=== PATIENT | female | born 1970 | race Caucasian/White ===

== ENCOUNTER → 2017-10-23 12:28 | Outpatient (CLI) | payer OTHER, SELFPAY ==
--- NOTE | 2017-10-23 12:36 | HPBI_ITS ---
MAMMOGRAPHY - BILATERAL SCREENING REASON FOR EXAM: Female, 47 years old. Routine annual screening examination. PERTINENT HISTORY: Non-contributory. TECHNIQUE: Digital bilateral breast bonnie (3D mammographic acquisition) in the CC and MLO projections. 2-D mediolateral oblique (MLO) and craniocaudad (CC) views of both breasts were obtained. CAD: Full Field Digital Mammography with Computer Added Detection was performed. COMPARISON: None. Baseline examination. FINDINGS: Breast Composition: There are scattered areas of fibroglandular density. There are no dominant masses or suspicious calcifications. A sebaceous cyst is seen in the deep medial aspect of the left breast. No other significant abnormalities are identified. HPBI/SCREENING MAMM (CAD), BILAT IMPRESSION: Negative screening mammogram. Yearly followup mammogram recommended. (A) ASSESSMENT CATEGORY: BIRADS Category 2: Benign. A letter regarding these results will be sent to the patient by the facility within 30 days. Approximately 10% of breast cancers are not detected by mammography. A normal mammogram should not delay biopsy of a clinically suspicious abnormality. [id number] Electronically Signed: Gonzalez Sherman MD at 14:15 EST Tel [phone], Service support ,
== END ==
DX: Z12.31 Encounter for screening mammogram for malignant neoplasm of breast (principal)
CPT/HCPCS: 77063; 77067

== ENCOUNTER → 2018-04-07 12:05 | Outpatient (CLI) | payer MEDICAID, SELFPAY | DX: J44.1 Chronic obstructive pulmonary disease with (acute) exacerbation (principal) | CPT/HCPCS: 71260; Q9967 ==

== ENCOUNTER 2018-04-20 07:29 | Emergency (ER) | payer MEDICAID, SELFPAY ==
[2018-04-20 07:29] VITALS: BP 162/92; PULSE 98; RESP 18; TEMP 36.9; O2SAT 99; BMI 44.1
[2018-04-20 08:33] LABS: Absolute Lymphocyte Count 1.61 X10^3/ul (0.83-4.51); Absolute Neutrophil Count 3.8 X10^3/uL (2.0-7.7); Basophil# 0.01 X10^3/uL; Basophil% 0.2 % (0-1); Eosinophil# 0.09 X10^3/uL; Eosinophils% 1.5 % (0-5); Hematocrit 44.8 % (37-47); Hemoglobin 14.5 g/dl (12.0-15.0); Lymphocyte # 1.61 X10^3/ul (4.0); Lymphocyte % 26.6 % (19-41); Mean Corp Hgb Conc 32.4 g/gl (32-36); Mean Corpuscular Hgb 29.1 pg (27.0-32.0); Monocyte# 0.57 X10^3/uL; Monocyte% 9.4 % (0-10); Neutrophil # 3.78 X10^3/uL (2.7-7.7); Neutrophil % 62.3 % (47-70); POSITIVE COUNT NO; POSITIVE DIFFERENTIAL NO; POSITIVE MORPHOLOGY NO; Platelet Count 166 K/mm3 (150-450); RBC Distribution Width CV 13.2 % (11.6-14.6); RBC Distribution Width SD 42.6 fl (35.1-43.9); Red Blood Count 4.98 M/mm3 (4.2-5.4); White Blood Count 6.1 K/mm3 (4.4-11.0)
[2018-04-20 09:50] LABS: ALB/GLOB Ratio 1.1 RATIO (0.9-2.4); AST(SGOT) 15 U/L (15-37); Alanine Aminotransfer ALT/SGPT 24 U/L (13-56); Albumin, Serum 3.8 g/dL (3.2-5.0); Alkaline Phosphatase 61 U/L (45-117); Anion Gap 8 (5-15); BUN 10 mg/dL (7-18); BUN/Creat Ratio 10.7 RATIO (10-20); Calcium,Total 8.6 mg/dL (8.5-10.1); Chloride 106 mmol/L (98-107); Creatinine, Serum 0.94 mg/dL (0.55-1.02); EST Glomerular Filtration Rate 68 mL/min (>60); Est Glom Filt Rate - Afr Amer 82 mL/min (>60); Estimated Creatinine Clearance 71.95 ml/min; Globulin 3.5 g/dL (2.2-4.2); Glucose 90 mg/dL (74-106); Potassium 3.9 mmol/L (3.5-5.1); Protein, Total 7.3 g/dL (6.4-8.2); Sodium Level 142 mmol/L (136-145)
--- NOTE | 2018-04-20 10:00 | ED.VISSUMM ---
- ER Visit Summary Date of Service: 04/20/18 Chief Complaint: Anterior lower chest/upper abdominal pain History of Present Illness: The patient is a 48 F who recently had a CAT scan of her chest that revealed a nodular thyroid suspect secondary to goiter. Outpatient ultrasound was recommended. Uncertain reason she was sent to the emergency department. Patient states this pain is been present intermittently for 3 months. There are no alleviating, exacerbating or precipitating factors. She denies fever, chills or night sweats. She denies weight loss. She reports 40 pound weight gain since she was placed on prednisone for COPD. She is a smoker 1-1/2 packs per day. She denies any food intolerance. She denies hematemesis, melena hematochezia. There is no history of trauma. Physical Examination: Patient appears in no distress. Vital signs were noted and unremarkable. BMI is 44.2. Head is atraumatic normocephalic. Pupils are equal round reactive. Extraocular muscles are intact. TMs are pearly white with landmarks noted. Nares patent with no drainage. Posterior pharynx without erythema or exudate. Uvula is midline. There is no dysphonia or dysphasia. Trachea is midline. There is no stridor with auscultation of the neck. Heart is regular without murmur, gallop or rub. S1 and S2 are normal. Lungs are clear to auscultation with good movement of air bilaterally. Abdomen is soft with a negative Castillo sign. Bowel sounds are present slightly diminished. There is no tympany or percussion. There is no dermatologic lesions to suggest shingles. There is no CVA tenderness. Neuro exam is nonfocal Test Results: CBC and CMP are normal. Emergency Department Course and Treatment: Because of location of pain CBC and CMP were obtained. Patient's CAT scan did reveal organs in the right upper quadrant and there was no N O'Harjit liver or gallbladder. With no intolerance to greasy or fried foods negative Castillo sign if workup i.e. laboratory results are negative we will have her follow-up with practitioner at [facility] to further evaluate her pain since this is been present for 3 months. Treatment Plan: Bentyl for abdominal discomfort and follow-up with PCP to schedule outpatient ultrasound of her thyroid Disposition: Discharged to home Impression: 1. Recurrent intermittent right sided lower chest/right upper quadrant abdominal pain of unknown etiology 2. Nodular thyroid subsequent visit 3. History of COPD This note was generated with [employer] dictation software. It may contain incorrect words, spelling, and punctuation that were not noted in review of the chart prior to signing ED Disposition - Plan for ED Patient: Disposition: Home or Assisted Living Chief Complaint: Abd Pain Instructions: ED Abdominal Pain Unkn Cause, ED Acute Pain [facility] Prescriptions: Dicyclomine HCl [Bentyl] 20 mg PO ACHS #20 cap Referrals: [facility] [Primary Care Provider] - 1-2 Weeks Additional Instructions: You need to follow-up with your [facility] care provider at [facility] to arrange for outpatient ultrasound of your thyroid. The cause of your pain is unknown.
[2018-04-20 10:32] VITALS: BP 134/89; PULSE 75; RESP 16; O2SAT 98
== END 2018-04-20 10:33 | disposition home or self-care (01) ==
PROVIDERS: Emergency Provider Emergency Medicine
DX: R10.11 Right upper quadrant pain (principal); R07.9 Chest pain, unspecified; E04.1 Nontoxic single thyroid nodule; J44.9 Chronic obstructive pulmonary disease, unspecified; E66.9 Obesity, unspecified; F17.210 Nicotine dependence, cigarettes, uncomplicated; Z68.41 Body mass index [BMI] 40.0-44.9, adult
CPT/HCPCS: 80053; 85025; 99283; A4216

== ENCOUNTER → 2018-06-04 14:30 | Outpatient (CLI) | payer MEDICAID, SELFPAY ==
--- NOTE | 2018-06-04 14:30 | ASPS_PTH ---
PATIENT: CRYSTAL FLORES [facility] U[facility][id number] AGE/SX: 55/F ROOM: RE06/04/[address]: Dr. Chele Delvalle MD : 1970 BED: DIS: SPEC #: [id number] RECD: 06/04/18 15:59 STATUS: MIKE BELL #: [id number] [place]: 06/04/18 14:[address]: Chele Delvalle DEPT: CYTOLOGY RECD BY: Desmond Fulton ENTERED: 06/05/18 11:14 SP TYPE: ASPIRATION OTHR DR: Freeland [facility] Tissues: A - Thyroid gland, NOS B - Thyroid gland, NOS Procedures: Pap Stain (control) Special Stain Group II Cytology Other HEADER OPERATION: Ultrasound-guided fine needle aspiration bilateral thyroid PRE-OP DIAGNOSIS: Multinodular goiter E04.1 TISSUE SUBMITTED: A - Fine needle aspiration right thyroid 12 slides, B - Fine needle aspiration left thyroid 12 slides DIAGNOSIS CYTOLOGY A. Right thyroid nodule, FNA (smears): Consistent with benign colloid nodule. See cytology study and comment. B. Left thyroid nodule, FNA (smears): Consistent with benign colloid nodule. See cytology study and comment. SJ:rg 06/05/18 COMMENT Correlation with clinical, radiologic findings and appropriate follow up are necessary. CYTOLOGY STUDY Slides are reviewed. A. The specimen is adequate for evaluation. The specimen consists of abundant colloid and benign follicular cells. B. The specimen is adequate for evaluation. The specimen consists of abundant colloid and benign follicular cells and H?rthle cells. CYTOLOGY GROSS A - Received are 12 smears labeled with the patient's name and designated per the requisition as right thyroid. Submitted for staining. B - Received are 12 smears labeled with the patient's name and designated per the requisition as left thyroid. Submitted for staining. 06/05/18 TC:5 CPT: 81466 x2
== END ==
PROVIDERS: Referring Provider Surgery; Visit Provider Surgery
DX: E04.2 Nontoxic multinodular goiter (principal)
CPT/HCPCS: 88161; 88313

== ENCOUNTER → 2018-06-30 10:56 | Outpatient (CLI) | payer MEDICAID, SELFPAY ==
--- NOTE | 2018-06-30 12:56 | PFT ---
INTRODUCTION: The patient is a 48-year-old female that presents for pulmonary function testing secondary to a diagnosis of COPD. Respiratory therapy reports good patient effort. Bronchodilators were used during testing. INTERPRETATION: Forced expiration spirometry demonstrates no evidence of a large airways obstructive ventilatory defect. There was no significant response to aerosolized bronchodilators, based upon strict ATS criteria. Spirograms are of good quality and plateau normally. Body plethysmography was performed and reveals lung volumes to be within normal limits. Diffusing capacity by single breath CO is within normal limits at 78% of predicted. IMPRESSION: Grossly normal pulmonary function testing.
== END ==
DX: J44.1 Chronic obstructive pulmonary disease with (acute) exacerbation (principal)
CPT/HCPCS: 94060; 94726; 94729

== ENCOUNTER → 2018-08-04 07:20 | Outpatient (CLI) | payer MEDICAID, SELFPAY ==
[2018-08-04 06:32] VITALS: BMI 45.7
[2018-08-07 06:08] LABS: Alternaria tenuis <0.10 kU/L (Class 0); Ash, White <0.10 kU/L (Class 0); Aspergillus fumigatus <0.10 kU/L (Class 0); Bermuda Grass <0.10 kU/L (Class 0); Birch <0.10 kU/L (Class 0); Black Walnut <0.10 kU/L (Class 0); Cat Hair / Dander,Stand <0.10 kU/L (Class 0); Cedar, Mountain <0.10 kU/L (Class 0); Cladosporium herbarum <0.10 kU/L (Class 0); Cockroach, American <0.10 kU/L (Class 0); Cottonwood <0.10 kU/L (Class 0); D farinae Mite <0.10 kU/L (Class 0); D pteronyssinus <0.10 kU/L (Class 0); Dog Epithelia <0.10 kU/L (Class 0); Elm, American White <0.10 kU/L (Class 0); Immunoglobulin E 7 IU/mL (0-100); Maple/Box Elder <0.10 kU/L (Class 0); Mulberry, White <0.10 kU/L (Class 0); Oak, White <0.10 kU/L (Class 0); Pecan <0.10 kU/L (Class 0); Penicillium Notatum <0.10 kU/L (Class 0); Pigweed, Rough <0.10 kU/L (Class 0); Ragweed, Short/Common <0.10 kU/L (Class 0); Russian Thistle <0.10 kU/L (Class 0); Sheep Sorrel <0.10 kU/L (Class 0); Sycamore, American <0.10 kU/L (Class 0); Timothy Grass <0.10 kU/L (Class 0)
[2018-08-07 12:34] LABS: Immunoglobulin E 6 IU/mL (0-100); Mouse Urine <0.10 kU/L (Class 0)
--- OUTSIDE RECORDS SUMMARY | 2018-09-20 05:35 | XMS RPT_ITS ---
:1970 Author Organization OHIP Support Name Relationship Address Phone KANU HERRERA Unavailable [address] + [place] [address] UE Unavailable Unavailable Unavailable KANU HERRERA Unavailable [address] + [place] [address] UE Unavailable Unavailable Unavailable KANU HERRERA Unavailable . + [place] [address] UE Unavailable Unavailable Unavailable KANU HERRERA Unavailable Unavailable + [place] [address] UE Unavailable Unavailable Unavailable KANU HERRERA Unavailable Unavailable + [place] [address] UE Unavailable Unavailable Unavailable KANU HERRERA Unavailable . + [place] [address] UE Unavailable Unavailable Unavailable KANU HERRERA Unavailable Unavailable + [place] [address] UE Unavailable Unavailable Unavailable UE Unavailable Unavailable Unavailable UE Unavailable Unavailable Unavailable UE Unavailable Unavailable Unavailable DONALDO ADAMS Unavailable [address] + [place] [address] UE Unavailable Unavailable Unavailable DONALDO ADAMS Unavailable [address] + [place] [address] UE Unavailable Unavailable Unavailable DONALDO ADAMS Unavailable [address] + [place] [address] UE Unavailable Unavailable Unavailable DONALDO ADAMS Unavailable [address] + [place] [address] UE Unavailable Unavailable Unavailable Care Team Providers Name Role Phone Kai Blanchard D.O. Attending Unavailable [facility] Referring Unavailable Kai Blanchard D.O. Attending Unavailable Kai Blanchard D.O. Referring Unavailable [facility] Unavailable Swihart KELLI, Tara Consulting Unavailable Jody Allred Attending Unavailable [facility] Referring Unavailable Kai Blanchard D.O. Attending Unavailable Kai Blanchard D.O. Referring Unavailable Chele Delvalle Attending Unavailable [facility] Referring Unavailable [facility] Attending Unavailable [facility] Referring Unavailable [facility] Unavailable [facility] GLASS SETTER, Tara Consulting Unavailable Adelia, Chele Attending Unavailable AdeliaChele espitia Referring Unavailable [facility] Primary [facility] Un[facility] Attending Unavailable [facility] Referring Unavailable [facility] Unavailable Swihart GLASS SETTER, Tara Consulting Unavailable [facility] Attending Unavailable [facility] Referring Unavailable [facility] Unavailable Swihart GLASS SETTER, Tara Consulting Unavailable Chele Delvalle Attending Unavailable [facility] Referring Unavailable Chele Delvalle Attending Unavailable [facility] Referring Unavailable [facility] Primary [facility] Unavailable Reinaldo Grajeda Attending Unavailable [facility] Attending Unavailable Swihart GLASS SETTER, Tara Referring Unavailable [facility] Unavailable SWIHART STEEP TENDER, TARA L Attending Unavailable [facility] STEEP TENDER, TARA L Primary Care Unavailable CY BASSETT Attending Unavailable SWIHART STEEP TENDER, TARA L Primary Care Unavailable SWIHART STEEP TENDER, TARA L Attending Unavailable SWIHART STEEP TENDER, TARA L Primary Care Unavailable SWIHART STEEP TENDER, TARA L Attending Unavailable SWIHART STEEP TENDER, TARA L Primary Care Unavailable PROBLEMS PROBLEMS DATE TYPE CONDITION / CODE ATTENDING STATUS SOURCE 09/01/2018 Unknown G47.33 - Brigida, Active [place] Obstructive sleep [facility] Community apnea (adult) Hospital (pediatric) / Repository G47.33(ICD-10) 08/04/2018 Unknown J44.9 - Chronic Kai Blanchard, Active [place] obstructive D.O. Community pulmonary disease, Hospital unspecified / Repository J44.9(ICD-10) 07/13/2018 Unknown J44.1 - Chronic Kai Blanchard, Active [place] obstructive D.O. 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 [place] [address] OFFICE VISIT Date of Service: 09/01/18 MR#: [id number] Acct: [id number] Name: CRYSTAL FLORES Rep #: [id number] : 1970 Provider: Jody Allred Age/Sex: 48/F Location: [facility] Status: Signed Assessment AND Plan 1. RAMO (obstructive sleep apnea) G47.33 Plan Suspected. Several symptoms consistent with obstructive sleep apnea. Lengthy discussion about the pathophysiology of obstructive sleep apnea and its effects on overall health such as hypertension, hyperglycemia, anxiety and depression. The patient is agreeable to testing and treatment if determined appropriate. Plan for a polysomnogram, discussed the possibility of starting AutoPap versus a titration study if the polysomnogram is positive. Consider AutoPap. Plan to follow-up with Dr. Blanchard in 3 months. Initial goal is to wear the device at least 4 hours nightly, ultimately she would benefit from 7 hours nightly. Orders Orders: 2. Moderate persistent asthma with acute exacerbation J45.41 Plan Deteriorated. Likely secondary to acute sinusitis. Treating with Augmentin and a prednisone burst. Continue maintenance medications. No additional testing at this time. Follow-up with Dr. Blanchard in 3 months. Contact the office with any new or worsening symptoms in the meantime. 3. Anxiety F41.9 Plan Complicates exam, plan, care and prognosis. Plan Detail Other Medications New: Follow Up 3 Months ([facility]) HPI 1 MO FU COPD: Chief Complaint: Cough HPI Comments Details: This patient presents the office in follow-up on her asthma. She is ambulatory and currently in room air. She has not been seen in the ED or urgent care for respiratory illnesses since her last office visit. She has not required any antibiotics or prednisone for any breathing problems. She has been compliant with Symbicort 2 puffs twice daily. She rinses her mouth out after each use. She denies any medication side effects such as sore throat or thrush. She uses her albuterol nebulizer when she has bronchitis. She has not needed it recently. She uses her rescue inhaler a couple times per week when she experiences shortness of breath on exertion. She denies any shortness of breath with rest or conversation. Currently she has a moist but nonproductive cough, denies any sputum production or hemoptysis. Over the past 24 hours she has developed nasal congestion, sinus pressure, sneezing, clear nasal drainage and chest congestion. She denies any fever or chills. She denies any body aches. She reports that her symptoms are very similar to the ones that her significant other has experienced recently. She has not tried any [id number] medications for her symptoms. She continues to smoke 1 pack of cigarettes daily. She is currently snoring, does not feel rested upon arising in the morning. She often has dry mouth. She is not currently napping or nodding off while watching TV but is experiencing frequent headaches. She also reports 3 episodes or more of nocturia nightly. STOP-BANG Assessment: 1. Do you snore? Y 2. Are you frequently tired during the day? Y 3. Have you been observed gasping or choking while asleep? N 4. Do you have high blood pressure? Y 5. BMI - greater than 35kg/m2? Y 6. Age - over 50 years old? N 7. Neck Circumference - greater than 37 cm for females or 40 cm for males? Y 8. Gender - male? N Total STOP-BANG score = 5 which indicates HIGH risk for obstructive sleep apnea (yes to 3 or more questions = high risk of sleep apnea). Laboratory Tests A. tenuis Allergen IgE <0.10 A.fumigatus Allerg IgE <0.10 Intake Vital Signs09/01/18 Height 5 ft 7 in 09/01/18 Weight: 297 lb Intake Visit Reasons: 1 MO FU COPD Accompanied by: Self Allergies ibuprofen [From Motrin] Allergy (Unknown, Verified 09/01/18 08:31) Unknown vinyl ether Adverse Reaction (Verified 09/01/18 08:31) Rash Medications Albuterol Aerosols [Ventolin Aerosols] 2.5 mg INHALATION Q6HWA.RT 04/20/18 [History Confirmed 09/01/18] Dicyclomine HCl [Bentyl] 20 mg PO ACHS #20 cap 04/20/18 [Rx Confirmed 09/01/18] albuterol sulfate HFA 90 mcg/actuation aerosol inhaler 2 puff INHALATION Q6H PRN 08/04/18 [History Confirmed 09/01/18] budesonide-formoterol HFA 160 mcg-4.5 mcg/actuation aerosol inhaler 2 puff INHALATION Q12H 08/04/18 [History Confirmed 09/01/18] amoxicillin 875 mg-potassium clavulanate 125 mg tablet 1 tab PO BID #20 tab 09/01/18 [Rx Confirmed 09/01/18] doxycycline hyclate 50 mg capsule 50 mg PO DAILY cap 09/01/18 [History Confirmed 09/01/18] prednisone 20 mg tablet 60 mg PO QDAY #15 tab 09/01/18 [Rx Confirmed 09/01/18] sertraline 50 mg tablet 50 mg PO DAILY 09/01/18 [History Confirmed 09/01/18] PFSH Medical History Hemorrhoids (Acute) Constipation (Acute) Asthma (Acute) COPD (chronic obstructive pulmonary disease) (Acute) Shortness of breath (Acute) Anxiety (Acute) Depression (Acute) Arthritis (Acute) Fatigue (Acute) Surgical History History of surgical removal of skin lesion (Acute) Hx of fracture of femur (Acute) History of partial hysterectomy (Acute) History of surgical removal of pilonidal cyst (Acute) Hx of section (Acute) Family History Mother Diabetes Father Diabetes Bleeding disorder hx of blood clots Brother Diabetes Social History Smoking Status: Current every day smoker alcohol intake: never substance use type: does not use caffeine: Yes what type of physical activity do you participate in: none frequency: does not exercise seatbelt use: always Review of Systems Const CONSTITUTIONAL: Positive fatigue and weight gain; negative anorexia, body ache, chills, daytime sleepiness, fever(s), night sweats, oral thrush, stops breathing during sleep, weight loss, sleeping in chair, weight loss, frequent colds, seasonal allergies, other, headache(s) or orthopnea EETM Ear Nose Throat Mouth: Positive hearing normal, nasal congestion, nasal discharge and post nasal drip; negative hard of hearing, hoarseness, dry mouth in morning, change in vision, itchy eyes, eye pain, swallowing Difficulty, ear pain, nose bleed, headache(s), mouth pain, sinus pain, sinus pressure, sore throat or other Cardio Cardiovascular: Negative chest pain, chest pain at rest, chest pain with activity, irregular heart rhythm, edema, shortness of breath when lying down, palpitations, murmur or other Resp Respiratory: Positive as per HPI, shortness of breath shortness of breath: Positive with activity and chest tightness; negative pain with cough, wheezing, chest congestion, cough, pain on inspiration, inhalers, increase use of rescue inhalers, snoring, apnea or other Gastro Gastrointestional: Negative bloody stools, change in appetite, difficulty swallowing, reflux, hematemesis, melena stool, loose stool, constipation or other Genitourinary: Negative blood in urine, nocturia, pain with urination or other Musc Musculoskeletal: Negative body pain, back pain, neck pain or other Skin/Breast Skin/Breast: Negative dry skin, itching, unusual bruising, breast lump or other Neuro Neurological: Negative restless legs, confusion, weakness or other Psych Psychocological: Negative abnormal sleep pattern, anxiety, thoughts of hurting self/others, hopelessness or other Lymph Lymphatic: Negative easy bleeding, easy bruising, swollen lymph nodes or other Exam Const Constitutional: Positive conversant, cooperative, in no acute respiratory distress, well developed, well nourished, good hygiene, smells of smoke and obese Head Head: Positive normocephalic and atraumatic; negative cyanosis of lips/distal nose Eyes Eye: Positive clear conjunctiva; negative nystagmus or scleral abnormality Ears Ear: Positive hearing normal and external ears normal; negative hard of hearing Nose Nose: Positive no nasal discharge; negative epistaxis or external nose normal ([place] nose) Mouth Mouth: Positive post nasal drip, oral mucosae normal, no lesions, poor dentition and crowded posterior oropharynx; negative malodorous breath Mallampati Score: III: Mallampati Score Neck Neck: Positive normal visual inspection, full ROM, trachea midline, thick neck and female neck greater than 37 cm (15 in); negative lymphadenopathy, JVD or tender Chest Wall Chest: Positive normal inspection of the chest and symmetric chest movement; negative increased A/P diameter Resp lung sounds: Positive diminished, wheezes, normal expiratory time and normal respiratory effort; negative rhonchi, rales or dullness to percussion Cardio Cardiac: Positive regular rate, regular rhythm, S1 normal and S2 normal; negative murmur GI GI: Positive normal to inspection and obese; negative distended Genitourinary: Positive deferred Musc Musculoskeletal: Positive steady gait and ROM normal; negative kyphosis or scoliosis Skin Pulmonary Skin Exam: Positive erythema Pulses Pulse: Yes pulses normal x4 extremities Extremities Extremities: Yes capillary refill normal, No cyanosis, No clubbing, Yes edema Location: lower extremity location: Bilateral pitting +1 Neuro Neurologic: Yes conversant, Yes no focal neuro deficits, Yes normal concentration, Yes understands questions, Yes cooperative, Yes normal cognition, Yes normal coordination, No tremor Lymph Lymphatic: No lymphadenopathy Psych Appearance: Positive grossly normal and eye contact Mental Status: Positive mental status grossly normal Mood: Positive anxious mood Affect: Positive anxious affect Coding Level of Care Code Off vis,est,level 4 Diagnoses RAMO (obstructive sleep apnea) G47.33 Moderate persistent asthma with acute exacerbation J45.41 Asthma severity: moderate Asthma persistence: persistent Asthma complication type: with acute exacerbation Anxiety F41.9 09/01/18 0937 <Electronically signed by Jody TAPIA> Date Jody TAPIA Cosigner Signature: Date (if applicable) CC: [facility] PULMONARY VISIT REPORT Observed: 08/04/2018 Status: F Source: [place] 7:25 AM [facility] REPOSITORY [facility] [place] [address] [place] [address] OFFICE VISIT Date of Service: 08/04/18 MR#: [id number] Acct: [id number] Name: CRYSTAL FLORES Rep #: [id number] : 1970 Provider: Kai Blanchard D.O. Age/Sex: 48/F Location: [facility] Status: Signed Assessment AND Plan 1. SOB (shortness of breath) R06.02 Plan I do suspect that the patient's shortness of breath is likely multifactorial in etiology. Her recent pulmonary function testing completed in June revealed subtle findings of small airways obstruction. However, per strict guidelines, she did not have evidence of COPD. Nevertheless, if the patient does continue to smoke it is highly possible that she will go on to develop an obstructive airway disease. The patient's current PFTs may be more suggestive of underlying bronchospastic airway disease, like asthma. Patient continues to report pleurisy like symptoms, despite the fact that the symptoms do not respond to the use of albuterol. In fact, her spasms appear to be musculoskeletal in nature. She is currently doing well on Symbicort and as needed albuterol. This will be continued at this time. The patient may eventually require a prior authorization for this medication. At this time, I am going to check a RAST panel and IgE level to evaluate for the presence of allergies. I do also suspect that the patient's obesity and anxiety are also contributing to her perception of dyspnea. I do feel that it would be beneficial for the patient's depression and anxiety to be more aggressively treated. 2. Obesity E66.9 Plan Weight loss through dietary modification and a graded exercise regimen is strongly encouraged. 3. Nicotine dependence, cigarettes, uncomplicated F17.210 Plan I personally spent 5 minutes discussing the deleterious effects of ongoing tobacco utilization with the patient, including modalities which could be utilized to achieve a smoke-free lifestyle. The patient does not seem overtly ready to quit smoking yet. Plan Detail Other Orders Orders: Other Medications New: Follow Up 1 Month ([facility]) HPI HPI Comments Details: The patient is a 48-year-old female who presents to the clinic today in referral for evaluation of COPD. The patient is currently being followed by the [facility]. She claims to have been diagnosed with COPD in December 2017. She also reports a history of childhood asthma. Her main concerns are for that of shortness of breath, which occurs both at rest and with exertion. She also reports the presence of chest tightness, chronic nonproductive cough and occasional wheezing. She reports that she has been experiencing pleurisy like symptoms, which include muscle spasms located inferior to her right breast. The patient is currently prescribed both Symbicort and as needed albuterol. While she does report symptom improvement with her shortness of breath with the use of her rescue inhaler, albuterol does not relieve any of her muscle spasm symptoms. The patient was trialed on Dulera previously, but the patient stated that that medication did absolutely nothing for her. Her insurance, he does not currently cover her Symbicort and she is therefore being given samples of the medication. The patient did undergo pulmonary function testing in June 2018 which per strict guidelines did not demonstrate evidence of COPD. Patient did have subtle findings of potential small airways obstruction. Nevertheless, it is highly possible that given the patient's continued tobacco utilization, she will likely go on to develop an obstructive ventilatory impairment. She does report that weather, including extremely cold and hot temperatures, negatively impact her breathing quality. She is a current everyday smoker of approximately 1 pack of cigarettes daily. She previously smoked upwards of 2 packs of cigarettes and has been doing so for approximately 30 years. She is not currently employed. She reports an approximate 40 pound weight gain over the last year. She has become more inactive. She also reports baseline issues with depression and anxiety. She is unaware of any allergies that she is afflicted with. She does currently keep 3 dogs as pets in her home environment. She reports having been on multiple antibiotics recently for a breast abscess. She denies current fevers, chills or night sweats. Intake Vital Signs08/04/18 Height 5 ft 7 in 08/04/18 Weight: 292 lb Intake Visit Reasons: COPD Accompanied by: Self Allergies ibuprofen [From Motrin] Allergy (Unknown, Verified 08/04/18 06:32) Unknown vinyl ether Adverse Reaction (Verified 08/04/18 06:32) Rash Medications Albuterol Aerosols [Ventolin Aerosols] 2.5 mg INHALATION Q6HWA.RT 04/20/18 [History Confirmed 08/04/18] Dicyclomine HCl [Bentyl] 20 mg PO ACHS #20 cap 04/20/18 [Rx Confirmed 08/04/18] doxycycline monohydrate 150 mg capsule 150 mg PO BID cap 05/29/18 [History Confirmed 08/04/18] albuterol sulfate HFA 90 mcg/actuation aerosol inhaler 2 puff INHALATION Q6H PRN 08/04/18 [History Confirmed 08/04/18] budesonide-formoterol HFA 160 mcg-4.5 mcg/actuation aerosol inhaler 2 puff INHALATION Q12H 08/04/18 [History Confirmed 08/04/18] PFSH Medical History Hemorrhoids (Acute) Constipation (Acute) Asthma (Acute) COPD (chronic obstructive pulmonary disease) (Acute) Shortness of breath (Acute) Anxiety (Acute) Depression (Acute) Arthritis (Acute) Fatigue (Acute) Surgical History History of surgical removal of skin lesion (Acute) Hx of fracture of femur (Acute) History of partial hysterectomy (Acute) History of surgical removal of pilonidal cyst (Acute) Hx of section (Acute) Family History Mother Diabetes Father Diabetes Bleeding disorder hx of blood clots Brother Diabetes Social History Smoking Status: Current every day smoker alcohol intake: never substance use type: does not use caffeine: Yes what type of physical activity do you participate in: none frequency: does not exercise seatbelt use: always Review of Systems Const CONSTITUTIONAL: Positive fatigue; negative anorexia, body ache, chills, daytime sleepiness, fever(s), night sweats, oral thrush, stops breathing during sleep, weight loss, sleeping in chair, weight loss, weight gain, frequent colds, seasonal allergies, other, headache(s) or orthopnea EETM Ear Nose Throat Mouth: Positive hearing normal and hoarseness; negative hard of hearing, dry mouth in morning, change in vision, itchy eyes, eye pain, swallowing Difficulty, ear pain, nose bleed, headache(s), mouth pain, nasal congestion, nasal discharge, post nasal drip, sinus pain, sinus pressure, sore throat or other Cardio Cardiovascular: Positive chest pain and edema; negative chest pain at rest, chest pain with activity, irregular heart rhythm, shortness of breath when lying down, palpitations, murmur or other Resp Respiratory: Positive as per HPI, shortness of breath shortness of breath: Positive with activity and chest tightness; negative pain with cough, wheezing, chest congestion, cough, pain on inspiration, inhalers, increase use of rescue inhalers, snoring, apnea or other Gastro Gastrointestional: Positive other (abd bloating ); negative bloody stools, change in appetite, difficulty swallowing, reflux, hematemesis, melena stool, loose stool or constipation Genitourinary: Negative blood in urine, nocturia, pain with urination or other Musc Musculoskeletal: Positive back pain; negative body pain, neck pain or other Skin/Breast Skin/Breast: Negative dry skin, itching, rash, unusual bruising, breast lump or other Neuro Neurological: Negative restless legs, confusion, weakness or other Psych Psychocological: Positive anxiety and hopelessness; negative abnormal sleep pattern, thoughts of hurting self/others or other Lymph Lymphatic: Negative easy bleeding, easy bruising, swollen lymph nodes or other Exam Const Constitutional: Positive conversant, cooperative, in no acute respiratory distress, well developed and well nourished A bit unkempt in appearance. Obese. Head Head: Positive normocephalic and atraumatic; negative cyanosis of lips/distal nose Eyes Eye: Positive clear conjunctiva; negative nystagmus or scleral abnormality Ears Ear: Positive hearing normal and external ears normal; negative hard of hearing Nose Nose: Positive external nose normal; negative epistaxis Mouth Mouth: Positive oral mucosae normal, posterior oropharynx is adequate and poor dentition; negative no lesions or post nasal drip Mallampati Score: II: Mallampati Score Neck Neck: Positive normal visual inspection, trachea midline and thick neck; negative lymphadenopathy Chest Wall Chest: Positive symmetric chest movement Normal AP diameter. Resp lung sounds: Positive diminished diminished: Positive bialteral and normal expiratory time; negative wheezes, rhonchi or rales Cardio Cardiac: Positive regular rate, regular rhythm, S1 normal and S2 normal; negative rub, gallop or murmur GI GI: Positive normal bowel sounds Soft without distention Genitourinary: Positive deferred Musc Musculoskeletal: Positive steady gait Skin Pulmonary Skin Exam: Positive intact; negative lesion, ulcers, dermal atrophy or rash Pulses Pulse: Yes Pedal pulses present: Extremities Extremities: No clubbing, No cyanosis, No edema Neuro Neurologic: Yes conversant, Yes no focal neuro deficits, Yes cooperative Lymph Lymphatic: No lymphadenopathy Psych Appearance: Positive grossly normal Mental Status: Positive mental status grossly normal Mood: Positive congruent mood Affect: Positive normal affect Pulmonary Procedure Smoking Cessation Education: Yes education provided, 3-10 minutes and needs reinforcement Coding Level of Care Code Off vis,new,level 4 Diagnoses SOB (shortness of breath) R06.02 Obesity E66.9 Nicotine dependence, cigarettes, uncomplicated F17.210 08/04/18 0725 <Electronically signed by Kai Blanchard DO> Date Kai Blanchard DO Cosigner Signature: Date (if applicable) CC: KEATON MAYES [facility] IMMUNOGLOBULIN E Collected: 08/04/2018 Status: F Source: [place] 7:24 AM [facility] REPOSITORY TYPE CODE TESTS RESULT OUT OF RANGE REFERENCE UNITS LAB L3200.1600 0-100 IU/mL Normal IMMUNO E 6 Result Comment: Performed at: [address] [id number] Banking Center Manager: Jarvis Martinez MD, Phone: [phone] Performed By: #### L3200.5495 #### [facility] (refer to report for specific site) refer to report for address and phone number ALLERGEN RESP. AREA 5 Collected: 08/04/2018 Status: F Source: [place] 7:24 AM [facility] REPOSITORY Order Comment: Reason for Exam: Allergies Reason for exam? Allergies TYPE CODE TESTS RESULT OUT OF RANGE REFERENCE UNITS LAB L5500.8000 0-100 IU/mL Normal TOTAL igE 7 LAB L5500.9900 . Normal RAST COMMENT Comment Result Comment: Levels of Specific IgE Class Description of Class ----- < 0.10 0 Negative 0.10 - 0.31 0/I Equivocal/Low 0.32 - 0.55 I Low 0.56 - 1.40 II Moderate 1.41 - 3.90 III High 3.91 - 19.00 IV Very High 19.01 - 100.00 V Very High >100.00 Very High LAB L5510.0040 Class 0 kU/L CAT HAIR/DANDER Normal <0.10 LAB L5510.0070 Class 0 kU/L DOG EPITHELIA Normal <0.10 LAB L5520.0020 Class 0 kU/L D FARINAE MITE Normal <0.10 LAB L5520.0030 Class 0 kU/L D PTERONYSSINUS Normal <0.10 LAB L5540.0020 Class 0 kU/L BERMUDA GRASS Normal <0.10 LAB L5540.0190 Class 0 kU/L RUCHI GRASS Normal <0.10 LAB L5550.0020 Class 0 kU/L ALTERNARIA TEN Normal <0.10 LAB L5550.0040 Class 0 kU/L ASPERGILLUS FUM Normal <0.10 LAB L5550.0140 Class 0 kU/L CLADOSPOR HERB Normal <0.10 LAB L5550.0340 Class 0 kU/L PEN Notatum Normal <0.10 LAB L5555.0380 Class 0 kU/L COCKROACH,AMER Normal <0.10 LAB L5555.0410 Class 0 kU/L Mouse Urine Normal <0.10 Result Comment: Performed at: [address] [id number] Banking Center Manager: Jarvis Martienz MD, Phone: [phone] LAB L5560.0050 Class 0 kU/L RC, Normal WHITE <0.10 LAB L5560.0100 Class 0 kU/L BIRCH Normal <0.10 LAB L5560.0110 Class 0 kU/L CEDAR, Normal MOUNTAIN <0.10 LAB L5560.0140 Class 0 kU/L Normal COTTONWOOD <0.10 LAB L5560.0170 Class 0 kU/L ELM,AMER Normal WHITE <0.10 LAB L5560.0310 Class 0 kU/L Normal MAPLE/BOX ELDER <0.10 LAB L5560.0371 Class 0 kU/L Normal MULBERRY, WHITE <0.10 LAB L5560.0400 Class 0 kU/L OAK, Normal WHITE <0.10 LAB L5560.0440 Class 0 kU/L PECAN Normal <0.10 LAB L5560.0550 Class 0 kU/L Normal SYCAMORE, AMER <0.10 LAB L5560.0570 Class 0 kU/L BLACK Normal WALNUT <0.10 LAB L5580.0210 Class 0 kU/L PIGWEED, Normal ROUGH <0.10 LAB L5580.0260 Class 0 kU/L RAGWEED Normal SH/COM <0.10 LAB L5580.0320 Class 0 kU/L SHEEP Normal SORREL <0.10 LAB L5580.0360 Class 0 kU/L CAMEROONIAN Normal THISTLE <0.10 Performed By: #### L5500.0700 #### [facility] (refer to report for specific site) refer to report for address and phone number PULMONARY FUNCTION Observed: 06/30/2018 Status: F Source: [place] TEST 12:59 PM [facility] REPOSITORY [facility] Pulmonary Services/Neurology [address] [place] [address] MR#: [id number] Acct: [id number] Name: CRYSTAL FLORES Rep #: [id number] : 1970 48 From: Kai Blanchard DO Referring Dr: KEATON MAYES [facility] Status: REG CLI Ordering Dr: Date: Location: [facility] Sex: F C INTRODUCTION: The patient is a 48-year-old female that presents for pulmonary function testing secondary to a diagnosis of COPD. Respiratory therapy reports good patient effort. Bronchodilators were used during testing. INTERPRETATION: Forced expiration spirometry demonstrates no evidence of a large airways obstructive ventilatory defect. There was no significant response to aerosolized bronchodilators, based upon strict ATS criteria. Spirograms are of good quality and plateau normally. Body plethysmography was performed and reveals lung volumes to be within normal limits. Diffusing capacity by single breath CO is within normal limits at 78% of predicted. IMPRESSION: Grossly normal pulmonary function testing. 06/30/18 1259 <Electronically signed by Kai Brown DO> Date Kai Blanchard DO CC: KEATON MAYES [facility] Date Dictated: 06/30/18 1256 Date Transcribed: 06/30/181255 Supervisor Filtration: ORIN Signed SURGERY VISIT REPORT Observed: 06/16/2018 Status: F Source: [place] 8:55 AM [facility] REPOSITORY [facility] [address] [place] [address] OFFICE VISIT Date of Service: 06/11/18 MR#: [id number] Acct: [id number] Name: CRYSTAL FLORES Rep #: [id number] : 1970 Provider: Chele Delvalle MD Age/Sex: 48/F Location: [facility] Status: Signed Intake Intake Visit Reasons: FNA Bilateral Thyroid Nodules 06/04 Computer Systems Auditor Required: No Is patient in pain?: No Allergies ibuprofen [From Motrin] Allergy (Unknown, Verified 06/11/18 13:59) Unknown vinyl ether Adverse Reaction (Verified 06/11/18 13:59) Rash Medications Albuterol Aerosols [Ventolin Aerosols] 2.5 mg INHALATION Q6HWA.RT 04/20/18 [History Confirmed 06/11/18] Dicyclomine HCl [Bentyl] 20 mg PO ACHS #20 cap 04/20/18 [Rx Confirmed 06/11/18] Mometasone/Formoterol [Dulera 100 Mcg/5 Mcg Inhaler] 8.8 gm IH 04/20/18 [History Confirmed 06/11/18] bupropion HCl SR 150 mg tablet,12 hr sustained-release 150 mg PO BID 05/29/18 [History Confirmed 06/11/18] doxycycline monohydrate 150 mg capsule 150 mg PO BID cap 05/29/18 [History Confirmed 06/11/18] Subjective Details: Patient is status post a bilateral fine-needle aspiration of her thyroid gland completed on 06/04/2018. This came back consistent with benign colloid nodules on both sides and both sides were adequate for evaluation. She has not noticed any changes in her voice and she has not been experiencing any pain with swallowing. The largest nodule was on the right side and was 2.9 cm in size per Objective Details: Neck is supple no hard palpable nodules or I did not Assessment AND Plan Problems 1. Multinodular goiter (nontoxic) E04.2 Plan Patient will need to have a repeat ultrasound in 1 year. If the nodules grow by more than 20% or new nodules develop that are larger than a centimeter she will need to have repeat fine-needle aspirations. If the nodule on the right side gets above 4 cm then we will need to consider performing a thyroidectomy on her at that time. Coding Level of Care Code Off vis,est,level 2 Diagnoses Multinodular goiter (nontoxic) E04.2 06/16/18 0855 <Electronically signed by Chele Delvalle MD> Date Chele Delvalle MD [facility] Signature: Date (if applicable) CC: KEATON MAYES [facility] Observed: 06/09/2018 Status: F Source: [facility] 12:00 [facility] REFERENCE REPOSITORY Specimen #: [id number] Submitting Physician: KERI GOLDMAN M.D. FINAL DIAGNOSIS A. Skin, under right breast, excision - Keratin debris, consistent with epidermal inclusion cyst. SDB/LW/thais 06/11/2018 Jose Storey M.D. (Electronic Signature) SPECIMEN SUBMITTED A: SKIN, UNDER RIGHT BREAST, EXCISION CLINICAL DATA LIKELY 2 CONTIGUOUS EIC'S GROSS DESCRIPTION A. Received in formalin are multiple segments of hamilton-white soft tissue aggregating to 4.0 x 0.6 x 0.1 cm. An ellipse of skin is noted measuring 1.4 x 0.2 x 0.1 cm. Skin surface is grossly unremarkable. Specimen does resemble a cyst and is ruptured. Specimen is sectioned. Roving Winder sections are submitted in one cassette. Gross examination performed at [facility], [address] [place] [address] 06/10/2018 12:32:44 AM Date of Report: 06/11/2018 Date of Procedure: 06/09/2018 Date of Receipt: 06/09/2018 Submitted by: KERI GOLDMAN M.D. Location: Diagnostic interpretation performed at [place] [address]. Performed By: #### S #### See report for performing lab information. SURGERY VISIT REPORT Observed: 06/04/2018 Status: F Source: [place] 3:18 PM [facility] REPOSITORY [facility] [address] [place] [address]. [address] [place] [address] OFFICE VISIT Date of Service: 06/04/18 MR#: [id number] Acct: [id number] Name: CRYSTAL FLORES Rep #: [id number] : 1970 Provider: Chele Delvalle MD Age/Sex: 48/F Location: [facility] Status: Signed Intake Intake Visit Reasons: FNA Bilateral Thyroid Nodules Computer Systems Auditor Required: No Is patient in pain?: No Allergies ibuprofen [From Motrin] Allergy (Unknown, Verified 06/04/18 14:28) Unknown vinyl ether Adverse Reaction (Verified 06/04/18 14:28) Rash Medications Albuterol Aerosols [Ventolin Aerosols] 2.5 mg INHALATION Q6HWA.RT 04/20/18 [History Confirmed 06/04/18] Dicyclomine HCl [Bentyl] 20 mg PO ACHS #20 cap 04/20/18 [Rx Confirmed 06/04/18] Mometasone/Formoterol [Dulera 100 Mcg/5 Mcg Inhaler] 8.8 gm IH 04/20/18 [History Confirmed 06/04/18] bupropion HCl SR 150 mg tablet,12 hr sustained-release 150 mg PO BID 05/29/18 [History Confirmed 06/04/18] doxycycline monohydrate 150 mg capsule 150 mg PO BID cap 05/29/18 [History Confirmed 06/04/18] PFSH Medical History Hemorrhoids (Acute) Constipation (Acute) Asthma (Acute) COPD (chronic obstructive pulmonary disease) (Acute) Shortness of breath (Acute) Anxiety (Acute) Depression (Acute) Arthritis (Acute) Fatigue (Acute) Surgical History History of surgical removal of skin lesion (Acute) Hx of fracture of femur (Acute) History of partial hysterectomy (Acute) History of surgical removal of pilonidal cyst (Acute) Hx of section (Acute) Family History Mother Diabetes Father Diabetes Bleeding disorder hx of blood clots Brother Diabetes Social History Smoking Status: Former smoker alcohol intake: never substance use type: does not use caffeine: Yes what type of physical activity do you participate in: none frequency: does not exercise seatbelt use: always HPI HPI HPI: CRYSTAL FLORES, is a 48 F who presents to the office today for Office Procedures Fine Needle Aspiration Provider Documentation Details: Primitive diagnosis: Multinodular goiter Postoperative diagnosis: The same Procedure: Bilateral ultrasound-guided fine-needle aspiration of dominant bilateral thyroid nodules Surgeon: [place] Procedure: Ultrasound of the right thyroid gland revealed the dominant nodule in question. I prepped the skin with alcohol. I injected 1% lidocaine plain. Under ultrasound guidance I took 3 passes with a 22-gauge needle and plated these on glass slides. Sterile dressings were applied. She tolerated this well. I ultrasound the left side dominant nodules identified I prepped the skin with alcohol. I injected 1% lidocaine plain. Under ultrasound guidance I took 3 passes with a 22-gauge needle. I plated these on glass slides. Sterile dressings were applied. The patient tolerated the procedure well. Both of these look like your garden-variety colloid nodule Alert Kimi Alert Billing: Yes FNA 06197 Thyroid (Add modifier 52 for bilateral) Procedure Time Out Time Out Informed consent given: Yes Consent signed: Yes Time out checklist: patient, procedure, site marked/identified, positioning of patient, supplies available, allergies confirmed, team agrees on procedure Time out staff in room: Yes Time out verified: Yes Time out date: 06/04/18 Time out time: 14:28 Assessment AND Plan Problems 1. Multinodular goiter (nontoxic) E04.2 Orders Orders: Coding Level of Care Code Attention Kimi Diagnoses Multinodular goiter (nontoxic) E04.2 Additional Codes FNA - Fine Needle Aspiration: 58609 Thyroid (92761) 06/04/18 1518 <Electronically signed by Chele Delvalle MD> Date Chele Delvalle MD Cosigner Signature: Date (if applicable) CC: ASPIRATION (SLIDES Observed: 06/04/2018 Status: F Source: [place] ONLY) 2:30 PM [facility] REPOSITORY Patient: CRYSTAL FLORES : 1970 (48/F) Acct Num: [id number] Phys: Chele Delvalle MD Unit Num: [id number] Loc: [facility] Specimen: [id number] Received: 06/04/181558 Spec Type: ASPIRATION TISSUES 1 TISSUES: A. Thyroid gland, NOS B. Thyroid gland, NOS COMMENT Correlation with clinical, radiologic findings and appropriate follow up are necessary. CYTOLOGY GROSS A - Received are 12 smears labeled with the patient's name and designated per the requisition as right thyroid. Submitted for staining. B - Received are 12 smears labeled with the patient's name and designated per the requisition as left thyroid. Submitted for staining. / 06/05/18 TC:5 CPT: 08669 x2 CYTOLOGY STUDY Slides are reviewed. A. The specimen is adequate for evaluation. The specimen consists of abundant colloid and benign follicular cells. B. The specimen is adequate for evaluation. The specimen consists of abundant colloid and benign follicular cells and H rthle cells. DIAGNOSIS CYTOLOGY A. Right thyroid nodule, FNA (smears): Consistent with benign colloid nodule. See cytology study and comment. B. Left thyroid nodule, FNA (smears): Consistent with benign colloid nodule. See cytology study and comment. SJ:jefe 06/05/18 HEADER OPERATION: Ultrasound-guided fine needle aspiration bilateral thyroid PRE-OP DIAGNOSIS: Multinodular goiter E04.1 TISSUE SUBMITTED: A - Fine needle aspiration right thyroid 12 slides, B - Fine needle aspiration left thyroid 12 slides Signed David August 06/08/18 <signature on file> Performed By: #### PASPS #### [facility] [address] [place], [address] SURGERY VISIT REPORT Observed: 06/04/2018 Status: F Source: [place] 10:50 AM [facility] REPOSITORY [facility] [address] [place] [address] OFFICE VISIT Date of Service: 05/29/18 MR#: [id number] Acct: [id number] Name: CRYSTAL FLORES Rep #: [id number] : 1970 Provider: Chele Delvalle MD Age/Sex: 48/F Location: [facility] Status: Signed Intake Vital Signs05/29/18 Height 5 ft 7 in 05/29/18 Weight: 288 lb Intake Visit Reasons: Goiter/Will bring Disk from [place] Computer Systems Auditor Required: No Is patient in pain?: No Allergies ibuprofen [From Motrin] Allergy (Unknown, Verified 05/29/18 09:51) Unknown vinyl ether Adverse Reaction (Verified 04/20/18 07:32) Rash Medications Albuterol Aerosols [Ventolin Aerosols] 2.5 mg INHALATION Q6HWA.RT 04/20/18 [History Confirmed 05/29/18] Dicyclomine HCl [Bentyl] 20 mg PO ACHS #20 cap 04/20/18 [Rx] Mometasone/Formoterol [Dulera 100 Mcg/5 Mcg Inhaler] 8.8 gm IH 04/20/18 [History Confirmed 05/29/18] bupropion HCl SR 150 mg tablet,12 hr sustained-release 150 mg PO BID 05/29/18 [History Confirmed 05/29/18] doxycycline monohydrate 150 mg capsule 150 mg PO BID cap 05/29/18 [History Confirmed 05/29/18] [facility] Medical History Hemorrhoids (Acute) Constipation (Acute) Asthma (Acute) COPD (chronic obstructive pulmonary disease) (Acute) Shortness of breath (Acute) Anxiety (Acute) Depression (Acute) Arthritis (Acute) Fatigue (Acute) Surgical History History of surgical removal of skin lesion (Acute) Hx of fracture of femur (Acute) History of partial hysterectomy (Acute) History of surgical removal of pilonidal cyst (Acute) Hx of section (Acute) Family History Mother Diabetes Father Diabetes Bleeding disorder hx of blood clots Brother Diabetes Social History Smoking Status: Former smoker alcohol intake: never substance use type: does not use caffeine: Yes what type of physical activity do you participate in: none frequency: does not exercise seatbelt use: always HPI HPI HPI: CRYSTAL FLORES, is a 48 F who presents to the office today for evaluation of multinodular goiter. Patient had her thyroid ultrasound completed at [facility]. This showed a multinodular goiter numerous nodules on both sides there was a 2.9 cm nodule located in the right lower pole which they recommended a biopsy and a 2.4 cm located in the mid left pole as they recommended a biopsy. She herself has not had any neck pain she is not complaining of any tenderness along her thyroid gland. She has no history of exposure to radiation. ROS General General: Yes weight change and fatigue; no appetite, colon cancer, breast cancer or weakness HEENT HEENT: Yes difficulty swallowing and swollen glands; no eye injury, eye surgery or hoarseness Endo Endocrine: No thyroid disease, diabetes mellitus, thyroid cancer, Hair loss, heat intolerance or cold intolerance Skin Skin: Yes changing moles; no rash Musc Musculoskeletal: Yes back problems and arthritis; no rheumatoid arthritis, gout or joint pain Cardio Cardiovascular: No murmur, pacemaker, heart disease, atrial fibrillation, high blood pressure, heart attack, heart stent, palpitations, shortness of breat with exertion or chest pain Psych Psychiatric: Yes depression and anxiety; no hearing voices Resp Respiratory: Yes shortness of breath, Yes cough, Yes COPD, Yes asthma, No sleep apnea, No emphysema, No wheezing Gastro Gastrointestinal: Yes hemorrhoids, Yes constipation, No abdominal pain, No nausea or vomiting, No diarrhea, No blood in stool, No acid reflux, No ulcers, No gallbladder problem, No black,tarry stools Asa Hematologic: No blood thinners, No blood disorders, No bleeding, No anemia, No blood clots Neuro Neurologic: No system reviewed and no additional complaints, except as docu, No as per HPI, No abnormal walking, No abnormal hearing, No abnormal movements, No abnormal speech, No behavioral changes, No burning sensations, No confusion, No seizure-like activity, No unsteadiness, No dizziness, No localized weakness, No frequent falls, No headache(s), No lack of coordination, No loss of vision, No memory loss, No numbness, No other visual disturbances, No radiating pain, No restless legs, No sensory deficit, No fainting, No tingling, No tremor(s), No weakness, No other Exam Const General: well developed, no acute distress, well hydrated Orientation: oriented to person, oriented to place, oriented to time [facility] Head: normocephalic, atraumatic Ears: external ears normal Mouth: moist mucous membranes Other: Thyroid Exam: There are no hard palpable nodules identified. There is no lymphadenopathy identified. There is no tenderness to palpation of the thyroid Eyes Sclera: sclerae normal Pupils: normal by confrontation Neck Neck: no lymphadenopathy noted Neck mass: No Thyroid: symmetrical, thyroid normal Chest Chest palpation AND inspection: normal inspection of the chest Resp Effort AND Inspection: normal respiratory effort Auscultation: clear to auscultation bilaterally Percussion: percussion normal Cardio Rate: regular rate Rhythm: regular rhythm Heart Sounds: no murmurs GI Palpation: soft, no masses, no hepatosplenomegaly, nontender Rectal Exam: other Other: Rectal exam deferred. Extrem General: no clubbing, cyanosis or edema, normal to inspection Assessment AND Plan Problems 1. Multinodular goiter (nontoxic) E04.2 Plan Plan is to perform a bilateral fine-needle aspiration of the thyroid. We discussed the risks and benefits of the planned procedure. I have informed the patient that complications can occur including failure to complete the procedure. The patient had the opportunity to ask questions concerning the planned procedure. My staff has also explained the procedure to the patient in understandable terms and has given the patient printed material concerning the procedure. The patient freely consents to the procedure. Coding Level of Care Code Off vis,new,level 3 Diagnoses Multinodular goiter (nontoxic) E04.2 06/04/18 1050 <Electronically signed by Chele Delvalle MD> Date Chele Delvalle MD [facility] Signature: Date (if applicable) CC: KEATON MAYES [facility] Observed: 05/26/2018 Status: F Source: [facility] 12:00 AM [facility] REFERENCE REPOSITORY Specimen #: [id number] Submitting Physician: KERI GOLDMAN M.D. FINAL DIAGNOSIS A. Skin, right 3-4 toe web, shave excision - Compound acral nevus, hyperpigmented. AF/LW/rw 05/28/2018 Apolinar De La Garza M.D. PhD (Electronic Signature) SPECIMEN SUBMITTED A: SKIN, RIGHT 3-4 TOE WEB, SHAVE EXCISION CLINICAL DATA NO CLINICAL HISTORY GROSS DESCRIPTION A. Received in formalin is a 0.7 x 0.6 x 0.2 cm shave of skin. On the skin surface is a 0.2 cm, hamilton-brown flat area. The specimen is bisected. Totally submitted in formalin in one cassette. Gross examination performed at [facility], [address] [place] [address] 05/27/2018 1:46:44 PM Patient ID #: Date of Report: 05/28/2018 Date of Procedure: 05/26/2018 Date of Receipt: 05/27/2018 Submitted by: KERI GOLDMAN M.D. Location: Diagnostic interpretation performed at [place] [address]. Performed By: #### S #### See report for performing lab information. US ABDOMEN LIMITED Observed: 04/30/2018 Status: F Source: [employer] 10:00 AM [facility] REPOSITORY ORIGINAL US ABDOMEN LIMITED: Ultrasound of the RIGHT upper quadrant CLINICAL STATEMENT: RUQ PAIN COMPARISON: None FINDINGS: The liver is enlarged measuring 18.4 cm a critical coronal dimension with diffusely increased in echogenicity in comparison to the adjacent kidney with decreased visualization of periportal echoes, sugg esting hepatic steatosis. No focal lesions are seen. There is no intra or extrahepatic bile duct dilatation. The common duct is 8 mm at the emilie hepatis. The gallbladder is normally distended without calculus, wall thickening or tenderness. The visualized pancreas is normal in size and echogenicity. No ascites is seen in the Quiroga's pouch. The right k idney shows no pelvocaliectasis. IMPRESSION: Hepatic steatosis. Interpreted By: Viviana Alvarado MD Preliminary Report By: Viviana Alvarado MD Electronically Signed By: Viviana Alvarado MD Dictated Date: 04/30/2018 4:54:42 PM Prelim Date: 04/30/2018 4:54:42 PM Sign Date: 04/30/2018 4:55:45 PM US THYROID Observed: 04/30/2018 Status: F Source: [employer] 9:00 AM [facility] REPOSITORY ORIGINAL US THYROID CLINICAL STATEMENT: NON TOXIC GOITER. COMPARISON: None FINDINGS: Size right thyroid lobe: 6.3 x 2.4 x 3.1 cm Size left thyroid lobe: 6.2 x 2.4 x 2.8 cm Size isthmus: 1.0 cm Estimated total number of nodules greater than or equal to 1 cm: 11. The largest 4 will be described in further detail below. Nodule 1: Size: 2.0 x 2.0 x 2.3 cm Location: Right Lower Composition: mixed cystic and solid: 1 point Echogenicity: hypoechoic: 2 points Shape: wider than tall: 0 points Margins: smooth: 0 points Echogenic foci: none: 0 points ACR Total Points: 3; ACR TI-RADS risk category: TR3 - mildly suspicious nodule. Nodule 2: Size: 2.9 x 2.5 x 3.2 cm Location: Right Lower Composition: solid or almost completely solid: 2 points Echogenicity: hypoechoic: 2 points Shape: wider than tall: 0 points Margins: smooth: 0 points Echogenic foci: none: 0 points ACR Total Points: 4; ACR TI-RADS risk category: TR4 - moderately suspicious nodule. Nodule 3: Size: 2.4 x 1.7 x 1.5 cm Location: Left Mid Composition: solid or almost completely solid: 2 points Echogenicity: hypoechoic: 2 points Shape: wider than tall: 0 points Margins: smooth: 0 points Echogenic foci: none: 0 points ACR Total Points: 4; ACR TI-RADS risk category: TR4 - moderately suspicious nodule. Nodule 4: Size: 2.2 x 1.4 x 2.1 cm Location: Right Lower Composition: mixed cystic and solid: 1 point Echogenicity: hypoechoic: 2 points Shape: wider than tall: 0 points Margins: smooth: 0 points Echogenic foci: none: 0 points ACR Total Points: 3; ACR TI-RADS risk category: TR3 - mildly suspicious nodule. IMPRESSION: 1. Nodule 1: ACR TI-RADS 2017 Category 3. Recommend: Follow- up ultrasound in 1 year. 2. Nodule 2: ACR TI-RADS 2017 Category 4. Recommend: Ultrasound- guided fine needle aspiration 3. Nodule 3: ACR TI-RADS 2017 Category 4. Recommend: Ultrasound- guided fine needle aspiration 4. Nodule 4: ACR TI-RADS 2017 Category 3. Recommend: Follow- up ultrasound in 1 year. ACR TI-RADS 2017 Recommendations: TR1: No FNA or follow up TR2: No FNA or follow up TR3: FNA if >/= 2.5 cm, follow up if 1.5 - 2.4 cm in 1, 3, and 5 years TR4: FNA if >/= 1.5 cm, follow up if 1.0 - 1.4 cm in 1, 2, 3, and 5 years TR5: FNA if >/= 1.0 cm, follow up if 0.5 - 0.9 cm every year for 5 years *ACR TI-RADS recommends that no more than two nodules with the highest ACR TI-RADS total point should be biopsied and no more than four nodules should be followed. Interpreted By: Viviana Alvarado MD Preliminary Report By: Viviana Alvarado MD Electronically Signed By: Viviana Alvarado MD Dictated Date: 04/30/2018 4:39:36 PM Prelim Date: 04/30/2018 4:39:36 PM Sign Date: 04/30/2018 4:46:56 PM EMERGENCY DEPARTMENT Observed: 04/20/2018 Status: F Source: [place] SUMMARY 10:07 AM [facility] Medical Records Department [address] [place] [address] Emergency Department Summary 04/20/18 1000 MR#: [id number] Acct: [id number] Name: CRYSTAL FLORES Rep #: [id number] : 1970 48 From: Reinaldo Grajeda MD PCP: KEATON MAYES [facility] Status: REG ER - ER Visit Summary Date of Service: 04/20/18 Chief Complaint: Anterior lower chest/upper abdominal pain History of Present Illness: The patient is a 48 F who recently had a CAT scan of her chest that revealed a nodular thyroid suspect secondary to goiter. Outpatient ultrasound was recommended. Uncertain reason she was sent to the emergency department. Patient states this pain is been present intermittently for 3 months. There are no alleviating, exacerbating or precipitating factors. She denies fever, chills or night sweats. She denies weight loss. She reports 40 pound weight gain since she was placed on prednisone for COPD. She is a smoker 1-1/2 packs per day. She denies any food intolerance. She denies hematemesis, melena hematochezia. There is no history of trauma. Physical Examination: Patient appears in no distress. Vital signs were noted and unremarkable. BMI is 44.2. Head is atraumatic normocephalic. Pupils are equal round reactive. Extraocular muscles are intact. TMs are pearly white with landmarks noted. Nares patent with no drainage. Posterior pharynx without erythema or exudate. Uvula is midline. There is no dysphonia or dysphasia. Trachea is midline. There is no stridor with auscultation of the neck. Heart is regular without murmur, gallop or rub. S1 and S2 are normal. Lungs are clear to auscultation with good movement of air bilaterally. Abdomen is soft with a negative Castillo sign. Bowel sounds are present slightly diminished. There is no tympany or percussion. There is no dermatologic lesions to suggest shingles. There is no CVA tenderness. Neuro exam is nonfocal Test Results: CBC and CMP are normal. Emergency Department Course and Treatment: Because of location of pain CBC and CMP were obtained. Patient's CAT scan did reveal organs in the right upper quadrant and there was no N O'Harjit liver or gallbladder. With no intolerance to greasy or fried foods negative Castillo sign if workup i.e. laboratory results are negative we will have her follow-up with practitioner at [facility] to further evaluate her pain since this is been present for 3 months. Treatment Plan: Bentyl for abdominal discomfort and follow- up with PCP to schedule outpatient ultrasound of her thyroid Disposition: Discharged to home Impression: 1. Recurrent intermittent right sided lower chest/right upper quadrant abdominal pain of unknown etiology 2. Nodular thyroid subsequent visit 3. History of COPD This note was generated with M2TECH dictation software. It may contain incorrect words, spelling, and punctuation that were not noted in review of the chart prior to signing ED Disposition - Plan for ED Patient: Disposition: Home or Assisted Living Chief Complaint: Abd Pain Instructions: ED Abdominal Pain Unkn Cause, ED Acute Pain UKO Prescriptions: Dicyclomine HCl [Bentyl] 20 mg PO ACHS #20 cap Referrals: Keaton Salinas [Primary Care Provider] - 1-2 Weeks Additional Instructions: You need to follow-up with your health care provider at [facility] to arrange for outpatient ultrasound of your thyroid. The cause of your pain is unknown. What to do if you have Problems For any increased pain, shortness of breath, bleeding, nausea or vomiting, chest pain, or any unexpected problems, contact your Primary Care Provider. Call [facility] ([phone]) or report to the closest Emergency Room. Call 911 if necessary. 04/20/18 1007 <Electronically signed by Reinaldo Grajeda MD> Date Reinaldo Grajeda MD Cosigner Signature (If Indicated): Date CC: KEATON MAYES [facility] CBC W/DIFF, AUTOMATED Collected: 04/20/2018 Status: F Source: [place] 8:25 AM [facility] REPOSITORY TYPE CODE TESTS RESULT OUT OF RANGE REFERENCE UNITS LAB L100.1000 4.4-11.0 K/mm3 Normal WBC 6.1 LAB L100.1200 4.2-5.4 M/mm3 Normal RBC 4.98 LAB L100.1300 12.0-15.0 g/dl Normal HGB 14.5 LAB L100.1400 37-47 % Normal HCT 44.8 LAB L100.1500 81-99 fL Normal MCV 90.0 LAB L100.1600 27.0-32.0 pg Normal MCH 29.1 LAB L100.1700 32-36 g/gl Normal MCHC 32.4 LAB L100.1810 11.6-14.6 % Normal RDW CV 13.2 LAB L100.1820 35.1-43.9 fl Normal RDW SD 42.6 LAB L100.1900 150-450 K/mm3 Normal PLT 166 LAB L100.2000 6.2-12.0 fl Normal MPV 12.0 LAB L100.2100 47-70 % Normal NEUT% 62.3 LAB L100.2200 19-41 % Normal LY% 26.6 LAB L100.2300 0-10 % Normal MONO% 9.4 LAB L100.2400 0-5 % Normal EO% 1.5 LAB L100.2500 0-1 % Normal BASO% 0.2 LAB L100.2550 0.0-0.9 % Normal IM GRAN % 0.000 Result Comment: IG% - Immature Granulocytes (promyelocytes, myelocytes and metamyelocytes) > 1% indicates that a LEFT SHIFT is Present. LAB L100.2620 2.0-7.7 X10 3/uL Normal Absolute Neut 3.8 LAB L100.2720 0.83-4.51 X10 3/ul Normal Absolute Lymph 1.61 Performed By: #### L100.0100 #### [facility] [address] [place], [address] COMPREHENSIVE METABOLIC Collected: 04/20/2018 Status: F Source: [facility] 8:25 AM [facility] REPOSITORY TYPE CODE TESTS RESULT OUT OF RANGE REFERENCE UNITS LAB L501.0100 74-106 mg/dL Normal GLU 90 Result Comment: Please note revised GLUCOSE reference range effective 2017. LAB L501.1000 7-18 mg/dL Normal BUN 10 LAB L501.1100 0.55-1.02 mg/dL Normal CREAT,SERUM 0.94 Result Comment: The validity of the calculated GFR AND GFRAA in patients over 70 years has not been determined. Clinical correlation is essential. LAB L501.1110 >60 mL/min Normal EST GFR 68 Result Comment: Non- GFR Calc LAB L501.1115 >60 mL/min Normal EST GFR - AA 82 Result Comment: GFR Calc LAB L501.1255 ml/min Normal Estimated CRCL 71.95 LAB L501.1300 10-20 RATIO Normal BUN/CRE 10.7 LAB L501.1500 6.4-8. g/dL Normal 2 T PROT 7.3 LAB L501.1800 3.2-5. g/dL Normal 0 ALB 3.8 LAB L501.1950 2.2-4. g/dL Normal 2 GLOB 3.5 LAB L501.2000 0.9-2. RATIO Normal 4 A/G 1.1 LAB L501.2200 8.5-10 mg/dL Normal .1 CA 8.6 LAB L501.4100 15-37 U/L Normal AST 15 LAB L501.4305 45-117 U/L Normal ALK P 61 LAB L501.4405 13-56 U/L Normal ALT 24 LAB L501.4600 0.20-1 mg/dL Normal .00 T BILI 0.30 LAB L501.5300 136-14 mmol/L Normal 5 NA 142 LAB L501.5600 3.5-5. mmol/L Normal 1 K 3.9 LAB L501.5900 98-107 mmol/L Normal CL 106 LAB L501.6100 21.0-3 mmol/L Normal 2.0 CO2 28.0 LAB L501.6200 5-15 Normal GAP 8 Performed By: #### L500.4050 #### [facility] [address] [place], [address] CHEST WITH CONTRAST Observed: 04/07/2018 Status: F Source: [place] 12:08 PM [facility] REPOSITORY [facility] Imaging Services [address] [place] [address] Chest WITH Contrast MR#: [id number] Acct: [id number] Name: CRYSTAL FLORES Rep #: [id number] : 1970 F 48 From: Michoacano Kearney MD PCP: KEATON MARROQUIN Status: REG CLI Study: Chest WITH Contrast Date of Exam: 04/07/18 Exam# [id number] Ordering Dr: Keaton Salinas STUDY: CT CHEST WITH CONTRAST REASON FOR EXAM: Female, 48 years old. Fever and cough RADIATION DOSAGE (If Supplied By Facility): CTDIvol = ( 18.38 ) mGy, DLP = ( 748.43 ) mGycm TECHNIQUE: Transaxial imaging was performed following intravenous administration of 100CC ml of Isovue 250 contrast material. Individualized dose optimization techniques were used for this CT. COMPARISON: None. FINDINGS: There is significant enlargement of the entire thyroid with low-density nodules. Findings are suggestive of goiter but a dedicated thyroid ultrasound is recommended since there are no previous studies available for comparison. The lungs are normal. There is no demonstrated pleural abnormality. Normal heart and pericardium. There are scattered subcentimeter axillary and mediastinal lymph nodes. Normal hilar regions. Normal enhanced pulmonary arteries. Normal aorta arch and descending thoracic aorta. Normal osseous structures. There is no demonstrated abnormality of the visualized upper abdomen. CT/Chest WITH Contrast IMPRESSION: No acute pulmonary process. Global thyroid enlargement with multiple low-density nodules. Findings suggest goiter but dedicated thyroid ultrasound is recommended since there are no previous studies available for comparison. Electronically Signed: Umang Kearney MD at 16:42 EDT , Service support , CC: KEATON MAYES [facility] Supervisor Filtration: Signed XR CHEST 2 VIEWS Observed: 03/10/2018 Status: F Source: [place] Site Tour 9:08 PM [facility] REPOSITORY ORIGINAL XR CHEST 2 VIEWS CLINICAL STATEMENT: cough COMPARISON: Chest radiograph 02/04/2018 FINDINGS: The cardiomediastinal contours are normal. There is no consolidation, vascular congestion, pleural effusion, or pneumothorax. Osseous structures demonstrate no acute abnormalities. IMPRESSION: No acute radiographic findings. I have personally reviewed the images of this examination and agree with the resident's findings and interpretation. Interpreted By: Dayron Blas MD Preliminary Report By: Francia Price MD Electronically Signed By: Dayron Blas MD Dictated Date: 03/10/2018 9:13:28 PM Prelim Date: 03/10/2018 9:13:59 PM Sign Date: 03/10/2018 9:32:24 PM XR CHEST 2 VIEWS Observed: 02/04/2018 Status: F Source: [place] Site [place] 9:17 AM [facility] REPOSITORY ORIGINAL XR CHEST 2 VIEWS CLINICAL STATEMENT: cough. COMPARISON: None FINDINGS: The heart is not enlarged. The interstitial markings are coarsened diffusely. There is no focal consolidation. No pleural abnormality is seen. IMPRESSION: Diffuse coarsening of interstitial markings, significance uncertain. This may represent chronic change or an atypical infection. Clinical correlation and follow-up suggested. Interpreted By: Pushpa Sinha MD Preliminary Report By: Pushpa Sinha MD Electronically Signed By: Pushpa Sinha MD Dictated Date: 02/04/2018 12:07:24 PM Prelim Date: 02/04/2018 12:07:24 PM Sign Date: 02/04/2018 12:08:33 PM SCREENING MAMM (CAD), Observed: 10/23/2017 Status: F Source: [place] 12:36 PM [facility] REPOSITORY [facility] Imaging Services [address] [place] [address] SCREENING MAMM (CAD), BILAT MR#: [id number] Acct: [id number] Name: CRYSTAL FLORES Rep #: [id number] : 1970 F 47 From: Gonzalez Sherman MD PCP: KEATON MAYES [facility] Status: REG CLI Study: SCREENING MAMM (CAD), BILAT Date of Exam: 10/23/17 Exam# [id number] Ordering Dr: Tara Mortensen [employer]MENT RENTAL MANAGER-Klever MAMMOGRAPHY - BILATERAL SCREENING REASON FOR EXAM: Female, 47 years old. Routine annual screening examination. PERTINENT HISTORY: Non-contributory. TECHNIQUE: Digital bilateral breast bonnie (3D mammographic acquisition) in the CC and MLO projections. 2-D mediolateral oblique (MLO) and craniocaudad (CC) views of both breasts were obtained. CAD: Full Field Digital Mammography with Computer Added Detection was performed. COMPARISON: None. Baseline examination. FINDINGS: Breast Composition: There are scattered areas of fibroglandular density. There are no dominant masses or suspicious calcifications. A sebaceous cyst is seen in the deep medial aspect of the left breast. No other significant abnormalities are identified. HPBI/SCREENING MAMM (CAD), BILAT IMPRESSION: Negative screening mammogram. Yearly followup mammogram recommended. (A) ASSESSMENT CATEGORY: BIRADS Category 2: Benign. A letter regarding these results will be sent to the patient by the facility within 30 days. Approximately 10% of breast cancers are not detected by mammography. A normal mammogram should not delay biopsy of a clinically suspicious abnormality. [id number] Electronically Signed: Gonzalez Sherman MD at 14:15 EST Tel [phone], Service support , CC: Tara PEREIRA; KEATON MAYES [facility] Supervisor Filtration: Signed ALLERGIES ALLERGIES DATE TYPE / CODE NAME / CODE REACTION SEVERITY SOURCE 09/01/2018 Drug vinyl Rash Unknown [facility] Allergy/4160 ether/[id number] [place] 6919402(SNOMED 393(RXNORM) Repository CT) 09/01/2018 Drug ibuprofen/F00 Unknown Unknown [facility] Allergy/4160 9984134(RXR [facility] 81022(SNOMED M) Repository CT) ENCOUNTERS ENCOUNTERS ADMIT/DISCHARGE ACCOUNT NUMBER ADMITTING ENCOUNTER LOCATION SOURCE CLASS 09/01/2018/09/01/19 [id number] Ambulatory BMSBuilding: [place] 19 BMS[facility] Repository 08/04/[id number] [facility] ding:LAB Repository 08/04/2018/08/04/20 [id number] Ambulatory BMSBuilding: [place] 18 BMS.[facility] Repository 06/30/2018 [id number] Ambulatory BMSBuilding: [place] Repository 06/30/[id number] [facility] ding:PSN Repository 06/11/2018/06/11/20 [id number] Ambulatory BMSBuilding: [place] 18 BMS.[facility] Repository 06/04/[id number] [facility] ding:LABSPEC Repository 06/04/2018/06/04/20 [id number] Ambulatory BMSBuilding: [place] 18 BMS.[facility] Repository 05/29/2018/05/29/20 [id number] Ambulatory BMSBuilding: [place] 18 BMS.[facility] Repository 05/26/2018 [id number] Ambulatory BBuilding:[facility] Repository 04/30/2018/04/30/20 [id number] Ambulatory [address] ding:[facility] Repository 04/20/2018/04/20/20 [id number] Emergency [address] ding:ED Repository 04/07/[id number] [facility] ding:CT Repository 03/10/2018/03/10/20 [id number] Emergency BBuilding:ER [address] Repository 03/10/[id number] [facility] ding:CT Repository 02/04/2018/02/05/20 [id number] Ambulatory [address] ding:[facility] Repository 10/23/[id number] [facility] ding:BI Repository PAYERS PAYERS ENCOUNTER GUARANTOR PAYER SUBSCRIBER SOURCE 09/01/2018 CRYSTAL Carlson Primary CRYSTAL J [place] [id number] Insurance:CARESOURCEPo BOOTHDOB: [facility] lic Number: [id number] [id number] Repository 358[address]Xaq: 330) Date:2018-08-04 [phone] (JI) 1489ATTN: [place] [address]FS: 09/01/2018 Secondary NOT GIVENUNK [place] Insurance:SELF PAY [facility] Number: Effective Repository Date:2018-08-28 08/04/2018 CRYSTAL Carlson Primary CRYSTAL J [place] [id number] Insurance:CARESOURCEPo BOOTHDOB: [facility] Number: [id number] [place], [place] [id number] Repository 244[address]Jxv: 330) Date:2018-08-04 [phone] (CW) 2751ATTN: [place] [address]BZ: 08/04/2018 Secondary NOT GIVENUNK [place] Insurance:SELF PAY [facility] Number: Effective Repository Date:2018-08-04 08/04/2018 CRYSTAL Carlson Primary CRYSTAL J [place] [id number] Insurance:CARESOURCEPo BOOTHDOB: [facility] licy Number: [id number] City, [place] [id number] Repository [address]Ttk: (330) Date:2018-07-31P [phone] (HP) 8730ATTN: [place] [address]WZ: 08/04/2018 Secondary NOT GIVENUNK [place] Insurance:SELF PAY [facility] Number: Effective Repository Date:2018-08-03 06/30/2018 CRYSTAL J Primary CRYSTAL J [place] [id number] Insurance:CARESOURCEPo BOOTHDOB: [facility] licy Number: [id number] City, [place] [id number] Repository [address]Jzg: (330) Date:2018-03-03P [phone] (HP) 3106ATTN: [place] [address]BG: 06/30/2018 Secondary NOT GIVENUNK [place] Insurance:SELF PAY [facility] Number: Effective Repository Date:2018-06-30 06/30/2018 CRYSTAL J Primary CRYSTAL J [place] [id number] Insurance:CARESOURCEPo BOOTHDOB: [facility] licy Number: [id number] [place], [place] [id number] Repository [address]Qzo: (330) Date:2018-03-03 [phone] (HP) 8730ATTN: [place] [address]AF: 06/30/2018 Secondary NOT GIVENUNK [place] Insurance:SELF PAY [facility] Number: Effective Repository Date:2018-03-03 06/11/2018 CRYSTAL J Primary CRYSTAL J [place] [id number] Insurance:CARESOURCEPo BOOTHDOB: [facility] lic Number: [id number] City, [place] [id number] Repository [address]Mjx: (330) Date:2018-06-04 [phone] (HP) 8730ATTN: [place] [address]XP: 06/11/2018 Secondary NOT GIVENUNK [place] Insurance:SELF PAY [facility] Number: Effective Repository Date:2018-06-11 06/04/2018 CRYSTAL Carlson Primary CRYSTAL J [place] [id number] Insurance:CARESOURCEPo BOOTHDOB: [facility] Number: [id number] City, [place] [id number] Repository [address]Wiv: (330) Date:2018-06-04P [phone] (HP) 3542ATTN: [place] [address]OL: 06/04/2018 Secondary NOT GIVENUNK [place] Insurance:SELF PAY [facility] Number: Effective Repository Date:2018-06-04 06/04/2018 CRYSTAL Aldo Primary CRYSTAL J [place] [id number] Insurance:CARESOURCEPo BOOTHDOB: [facility] Number: [id number] City, [place] [id number] Repository [address]Wwz: 330) Date:2018-05-29P [phone] (HP) 2205ATTN: [place] [address]PF: 06/04/2018 Secondary NOT GIVENUNK [place] Insurance:SELF PAY [facility] Number: Effective Repository Date:2018-06-04 05/29/2018 CRYSTAL J Primary CRYSTAL J [place] [id number] Insurance:CARESOURCEPo BOOTHDOB: [facility] Number: [id number] City, [place] [id number] Repository [address]Xjc: 330) Date:2018-05-27P [phone] (HP) 2392ATTN: [place] [address]LC: 05/29/2018 Secondary NOT GIVENUNK [place] Insurance:SELF PAY [facility] Number: Effective Repository Date:2018-05-27 05/26/2018 CRYSTAL J Primary CRYSTAL J [facility] BOOTHDOB: Insurance:CARESOURCE BOOTHDOB: [facility] [id number] MEDICAIDPolicy Number: [id number] Repository [place] [id number] [address] [place], [place] Date:2018-05-26 - [place], [place] [address]Wcm: [phone] [id number] [phone]: (HP) Name:[phone] [place] [address] (HP)Tel: [phone]: [phone] 04/30/2018 CRYSTAL Carlson Primary [facility]AL [facility]son [facility]CARESOURCE BOOTHDOB: [facility] MEDICAIDPolicy Number: [id number] Repository [place] [id number] [address] [place], [place] Date:2018-04-22 - [place], [place] [address]Hxp: [phone] [phone]: (HP) Name:[phone] [place] [address] (HP)Tel: [phone]: [phone] 04/20/2018 CRYSTAL Carlson Primary CRYSTAL Mcnairoster [id number] Insurance:CARESOURCEPo BOOTHDOB: [facility] Number: [id number] [place], [place] [id number] Repository [address]Wmc: 330) Date:2018-04-20P [phone] (HP) 8730ATTN: [place] [address]AB: 04/20/2018 Secondary NOT GIVENUNK [place] Insurance:SELF PAY [facility] Number: Effective Repository Date:2018-04-20 04/07/2018 CRYSTAL Carlson Primary CRYSTAL J [place] [id number] Insurance:CARESOURCEPo BOOTHDOB: [facility] Number: [id number] City, [place] [id number] Repository [address]Tww: (330) Date:2018-03-27P [phone] (HP) 8730ATTN: [place] [address]XY: 04/07/2018 Secondary NOT GIVENUNK [place] Insurance:SELF PAY [facility] Number: Effective Repository Date:2018-03-27 03/10/2018 CRYSTAL Carlson Primary CRYSTAL Carlson [facility] BOOTHDOB: Insurance:CARESOURCE BOOTHDOB: [facility] [id number] MEDICAIDPolicy Number: [id number] Repository [place] [id number] [address] [place], [place] Date:2018-03-10 - [place], [place] [address]Uzk: [phone] [id number] [phone]: (HP) Name:[phone] [place] [address] ()Tel: [phone]: [phone] 03/10/2018 CRYSTAL Carlson Primary CRYSTAL J [place] [id number] Insurance:CARESOURCEPo BOOTHDOB: [facility] Number: [id number] City, [place] [id number] Repository [address]Zaa: 330) Date:2018-03-03 [phone] (HP) 8730ATTN: [place] [address]EU: 03/10/2018 Secondary NOT GIVENUNK [place] Insurance:SELF PAY [facility] Number: Effective Repository Date:2018-03-03 02/04/2018 CRYSTAL Carlson Primary CRYSTAL J [facility] BOOTHDOB: Insurance:CARESOURCE BOOTHDOB: [facility] [id number] MEDICAIDPolicy Number: [id number] Repository [place] [id number] [address] [place], [place] Date:2018-02-04 - [place], [place] [address]Gou: [phone] [phone]: () Name:[phone] [place] [address] ()Tel: [phone]: [phone] 10/23/2017 CRYSTAL Primary CRYSTAL [place] [id number] Insurance:POSIES FOR BOOTHDOB: [facility] [id number], [place] Number: OEffective Repository [address]Uoq: 330) Date:2017-10-01 [phone] () 10/23/2017 Secondary NOT GIVENUNK [place] Insurance:SELF PAY [facility] Number: Effective Repository Date:2017-10-01
== END ==
PROVIDERS: Referring Provider Internal Medicine Critical Care Medicine; Visit Provider Internal Medicine Critical Care Medicine
DX: J44.9 Chronic obstructive pulmonary disease, unspecified (principal)
CPT/HCPCS: 36415; 82785; 86003

== ENCOUNTER → 2019-02-13 08:45 | Outpatient (CLI) | payer MEDICAID, SELFPAY ==
--- NOTE | 2019-02-13 08:45 | LES_PTH ---
PATIENT: CRYSTAL FLORES LOC: [facility] U#:[id number] AGE/SX: 55/F ROOM: RE02/13/[address]: Dr. Chele Delvalle MD : 1970 BED: DIS: SPEC #: [id number] RECD: 02/13/19 10:27 STATUS: MIKE BELL #: [id number] [place]: 02/13/19 08:[address]: Chele Delvalle DEPT: SURGICAL PATHOLOGY RECD BY: Devin Parra ENTERED: 02/15/19 10:07 SP TYPE: Lesion OTHR DR: Tara Mortensen, OUTBOARD MOTOR MECHANIC-C Tissues: Skin of abdomen, NOS Procedures: Surgery Specimen Level IV HEADER OPERATION: Shave biopsy of lower abdomen skin lesion PRE-OP DIAGNOSIS: Neoplasm of uncertain behavior of skin, D48.5 TISSUE SUBMITTED: Lower abdomen skin lesion MICROSCOPIC DIAGNOSIS Lower abdomen, skin lesion: Seborrheic keratosis, chronically inflamed. CE:jefe 02/16/19 MICROSCOPIC DESCRIPTION Slides are reviewed. GROSS DESCRIPTION Received in fixative is one container labeled with the patient's name and designated lower abdomen skin lesion. The specimen consists of two large verrucoid shave biopsies. The first measures 2 x 1.2 cm and the second measures 1.6 x 1.2 cm. Maximal depth of excision is 0.4 cm. The surfaces of the lesions show a diffuse verrucoid appearance. The specimen is totally submitted in one cassette. / CE:jefe 02/15/19 TC:1 CPT: 88306
[2019-02-13 09:05] VITALS: BMI 46.5
== END ==
PROVIDERS: Family Provider Nurse Practitioner Family; PCP Nurse Practitioner Family; Referring Provider Surgery; Visit Provider Surgery
DX: D48.5 Neoplasm of uncertain behavior of skin (principal)
CPT/HCPCS: 88305

== ENCOUNTER → 2019-03-29 07:04 | Outpatient (CLI) | payer MEDICAID, SELFPAY ==
[2019-03-01 12:06] VITALS: BMI 46.5
--- NOTE | 2019-03-29 07:06 | ECHOCS_ITS ---
Reason For Study: Dyspnea/SOB Procedure This was a 2D Doppler, Color Flow transthoracic echocardiogram. The study was technically difficult. Contrast injection was performed. Exam performed in department. Left Ventricle Normal size and thickness. The estimated ejection fraction is 65 %. Normal diastology for age. No regional wall motion abnormalities noted. Right Ventricle Normal size and thickness. Normal systolic function. Atria Normal left atrium. Normal right atrium. Normal atrial septum. Mitral Valve The mitral valve is structurally normal. No prolapse or stenosis seen. Trivial mitral valve insufficiency. Tricuspid Valve Normal tricuspid valve. Mild (1+) tricuspid valve insufficiency. Right ventricular systolic pressure estimated to be 33 mmHg. Aortic Valve Normal aortic valve. Trisinus/trileaflet aortic valve. Pulmonic Valve Normal pulmonic valve. Great Vessels Normal aortic root. Normal arch. Normal inferior vena cava. Inferior vena cava collapse with sniff. Pericardium/Pleural No pericardial effusion. Medication Diluted definity 2ml given slow IV push to enhance endocardial definition. MMode/2D Measurements & Calculations LVIDd: 5.3 cm IVSd: 1.2 cm Ao root diam: 2.8 cm LVIDs: 3.5 cm LVPWd: 1.2 cm RVDd: 4.3 cm FS: 34.0 % LAV(MOD-bp): 68.1 ml LVAd ap4: 38.8 cm2 SV(MOD-sp4): 97.4 ml LAV(MOD-bp) Indexed: 28.8 ml/m2 EDV(MOD-sp4): 157.3 ml LAV(MOD-sp2): 64.4 ml EDV(sp4-el): 162.7 ml LAV(MOD-sp4): 67.1 ml LVAs ap4: 20.9 cm2 ESV(MOD-sp4): 59.8 ml ESV(sp4-el): 61.6 ml EF(MOD-sp4): 62.0 % EF(sp4-el): 62.1 % SV(sp4-el): 101.1 ml LA A4 area: 21.6 cm2 LA dimension(2D): 4.8 cm RA A4 area: 15.7 cm2 Doppler Measurements & Calculations MV E max hammad: 104.8 cm/sec Lat Peak E' Hammad: 8.3 cm/sec Med Peak E' Hammad: 6.6 cm/sec MV A max hammad: 67.9 cm/sec E/E' lat: 12.7 E/E' med: 15.9 MV E/A: 1.5 Ao V2 max: 150.1 cm/sec LV V1 max: 112.5 cm/sec PA V2 max: 87.6 cm/sec Ao max P.0 mmHg LV V1 max P.1 mmHg Ao V2 mean: 106.9 cm/sec Ao mean P.1 mmHg Ao V2 VTI: 37.9 cm TR max hammad: 263.4 cm/sec TR max P.7 mmHg Interpretation Summary The estimated ejection fraction is 65 %. Normal diastology for age. Trivial mitral valve insufficiency. Mild (1+) tricuspid valve insufficiency. Right ventricular systolic pressure estimated to be 33 mmHg. The study was technically difficult. Contrast injection was performed. There is no comparison study available. Ordering Physician: Kai Blanchard Referring Physician: [facility] Performed By: Sol Mancuso, LOLY, RVT
--- NOTE | 2019-03-29 10:07 | PFTCOMP ---
COMPLETE PULMONARY FUNCTION TEST INTERPRETATION Brief HPI: Patient is a 49 year old female, currently under the care of Dr. Blanchard, who presents to [facility] for complete pulmonary function tests secondary to diagnosis of dyspnea. Respiratory therapist reports good effort and reproducible results. Interpretation: Forced expiration spirometry shows a moderate large airways obstructive ventilatory defect with an FEV1 of 64% predicted. There is a significant bronchodilator response in FEV1 by strict ATS criteria. Spirograms are of good quality and plateau slowly, indicating slowly emptying areas of the lungs. The respiratory flow volume loop shows decreased expiratory flow rates at all lung volumes consistent with airway obstruction. Lung volumes by body plethysmography show a normal total lung capacity at 5.7 L, 102% predicted. FRC and RV are elevated out of proportion. Lung volume measurements are consistent with air-trapping. Diffusion capacity by carbon monoxide is decreased at 71% predicted. The airway resistance is elevated. Compared to previous pulmonary function tests from 06/30/2018, there is been a significant reduction in FEV1 by 19%. Impression: Partially reversible moderate large airways obstructive ventilatory defect with a symmetric reduction diffusion capacity, in a pattern consistent with COPD/asthma overlap syndrome.
== END ==
PROVIDERS: Referring Provider Internal Medicine Critical Care Medicine; Visit Provider Internal Medicine Critical Care Medicine
DX: J45.909 Unspecified asthma, uncomplicated (principal); R60.0 Localized edema
CPT/HCPCS: 93306; 94060; 94726; 94729; Q9957; A4216; C8929

== ENCOUNTER → 2019-05-08 09:26 | Outpatient (CLI) | payer MEDICAID, SELFPAY ==
--- NOTE | 2019-05-08 07:15 | ASPS_PTH ---
PATIENT: CRYSTAL FLORES LOC: [facility] U#:[id number] AGE/SX: 55/F ROOM: RE05/08/[address]: Dr. Chele Delvalle MD : 1970 BED: DIS: SPEC #: [id number] RECD: 05/08/19 00:00 STATUS: MIKE BELL #: [id number] [place]: 05/08/19 07:[address]: Chele Delvalle DEPT: CYTOLOGY RECD BY: Devin Parra ENTERED: 05/10/19 10:48 SP TYPE: ASPIRATION OTHR DR: Tara Mortensen, RETORT CONDENSER ATTENDANT-C Tissues: Thyroid gland, NOS Procedures: Special Stain Group II Cytology Other HEADER OPERATION: Ultrasound-guided fine needle aspiration of left thyroid x2 PRE-OP DIAGNOSIS: Multinodular goiter (nontoxic) E04.2 TISSUE SUBMITTED: Fine needle aspiration left thyroid nodules, 16 slides DIAGNOSIS CYTOLOGY Left thyroid nodules, ultrasound-guided fine needle aspiration x2 (smears): 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 Adequate for evaluation. See comment. SJ:jefe 05/11/19 COMMENT All slides are received with same designation (no separate designation given the site of nodules). Correlation with clinical, radiologic findings and appropriate follow up are necessary. Please make reference to previous specimen ([id number]) right thyroid nodule and left thyroid nodule, FNA with diagnosis of consistent with benign colloid nodule. CYTOLOGY STUDY Slides are reviewed. CYTOLOGY GROSS Received are 16 smears labeled with the patient's name and designated per the requisition as left thyroid nodules. Submitted for staining. / jefe 05/10/19 TC:5 CPT: 72481
[2019-05-08 07:18] VITALS: BMI 46.5
== END ==
PROVIDERS: Family Provider Nurse Practitioner Family; PCP Nurse Practitioner Family; Referring Provider Surgery; Visit Provider Surgery
DX: E04.2 Nontoxic multinodular goiter (principal)
CPT/HCPCS: 88161; 88313

== ENCOUNTER 2019-05-12 16:00 | Outpatient (RCR) | payer MEDICAID, SELFPAY ==
[2019-03-01 12:06] VITALS: BMI 46.5
--- NOTE | 2019-05-10 14:17 | HP.SP.AD ---
History - History Date of Eval: 05/03/19 Previous speech therapy: No Other Relevant Medical History/Diagnoses/Surgery: Pt diagnosed with Bronchial Asthma for most of her life, with significant worsening in both frequency and severity over the last year. Has a rescue inhaler and PRN nebulizer. PCP reports asthma-COPD overlap syndrome. Pt reports diagnosis of pleurisy in January,, as well as a diagnosis of thyroid nodules last year which have recently multiplied and grown, resulting in a significant increase in anxiety and depression symptoms. Pt does see a counselor regularly. She has seasonal allergies for which she is treated with Singulair. She is also treated for obstructive sleep apnea and reports reflux symptoms (heart burn from artificial flavors, tomatoes, acidic foods...) Smoking Status: Current every day smoker Years Smokin Hx Tobacco Use: Yes - Pain Is pain an issue with your current prescribed condition?: No Patient Allergies - Allergies Allergies ibuprofen [From Motrin] Allergy (Unknown, Verified 05/08/19 07:26) Unknown vinyl ether Adverse Reaction (Verified 05/08/19 07:26) Rash Other Impressions - Comments Paradoxical Vocal Fold Malfunction -: The pt was seen today for possible underlying vocal fold dysfunction (pt has not been seen by an ENT). Pt reports worsening symptoms over the last year consisting of episodes of primary difficulty with inhalation, throat tightness, frequent stridor, rapid breathing/shortness of breath, dizziness, numbness, and coughing. She states that the first symptom each time is an itch in her throat which begins suddenly, followed by a coughing fit and afore-mentioned symptoms. She reports that attacks are typically severe, requiring stopping activity with no sense of control of breathing, and frequent, happening almost every time she is exposed to a trigger. Triggers include extreme temperatures/changes in temperature, seasonal allergies, wax burner smells, cleaning supplies (ammonnia, bleach), and spicy foods (vinegar, peppers). She is typically able to predict an attack based on exposure to known triggers or initiation of the itch in her throat. During an attack, she feels very panicked. However, she reports that her inhaler does typically stop an attack by helping her stop the coughing fit and opening her airways. Episodes can take from 2-3 minutes to 15-20 minutes to resolve, however. Therefore, it is uncertain whether PVFM is co-occuring with asthma at this time; however, because the pt does have many symptoms of PVFM, will initiate tx for several sessions to see if symptoms resolve faster than with inhaler. Plan - Plan Plan: Skilled speech-language therapy is thereby recommended and medically necessary at this time for remediation of possible paradoxical vocal fold dysfunction, as left untreated this issue can have a significant impact on a patient's physical and emotional well-being. - Recommendations Treatment Warranted: Yes - Frequency Frequency: 1-2x /Week Duration: 4-6 Weeks - Prognosis Prognosis: Fair - Goals that are Established: Determination:: Goals will be added/modified as deemed necessary and appropriate. Therapy will be discontinued when results of re-evaluation indicate therapy is no longer needed or lack of progress has been documented. - Goal #1-5 Goal #1: The patient will increase her knowledge of paradoxical vocal fold dysfunction by discussing normal and paradoxical vocal fold motion during breathing to reduce her anxiety and panic during an attack with 80% accuracy in 2/3 sessions. Goal #2: The patient will identify the causes of her paradoxical vocal fold dysfunction and identify ways to avoid her triggers with 90% accuracy in 2/3 sessions. Goal #3: The patient will learn breathing methods in order to control and ultimately prevent an attack by accurately demonstrating said methods independently across 3 consecutive sessions. Education - Patient Instruction Patient Education: Treatment Plan, Goals
--- NOTE | 2019-05-26 10:21 | HP.SP.DC_ITS ---
ST Discharge Summary - Discharged: Discharge: Emili Mario is discharged from [facility] as of May 26, 2019. She was evaluated on 05-10-19 with therapy recommended 1-2x a week for 4-6 weeks. She attended 2 sessions then cancelled 1 session with next three no showed. Therapist attempted to contact her to discuss sessions but was unsuccessful. Goals focused on increasing her knowledge of paradoxical vocal fold dysfunction by discussing normal and paradoxical vocal fold motion during breathing to reduce her anxiety and panic during an attack with 80% accuracy in 2/3 sessions. Also to identify triggers and avoid when possible then learn about breathing strategies. Discussed avoidance of triggers as able as well as consistently medically managing (Singulair for allergies, etc...) Educated pt on pretreating before a trigger and/or using breathing exercises at the very first symptoms. Pt to attempt 3-5 mins of breathing exercises before use of inhaler if necessary. Discussed the difference between COPD symptoms and PVFM symptoms. Pt able to indep demonstrate transnasal inhale and lengthened exhale via pursed lips. Reports has been practicing at rest and when asymptomatic. A this point she is discharged due to lack of attendance. A copy of this discharge will be sent to her referring physician. Thank you for this referral.
== END 2019-05-12 19:00 | disposition home or self-care (01) ==
LOC: SP 16:00
PROVIDERS: Referring Provider Nurse Practitioner Acute Care; Visit Provider Nurse Practitioner Acute Care
DX: J38.3 Other diseases of vocal cords (principal)
CPT/HCPCS: 92507; 92524

== ENCOUNTER 2019-10-22 08:55 | Day surgery (SDC) | payer MEDICAID, SELFPAY ==
--- NOTE | 2019-10-11 01:27 | HP_ITS ---
Intake Vital Signs 10/11/19 BMI 46.5 10/11/19 Height 5 ft 7 in 10/11/19 Weight: 306 lb 10/11/19 BMI 47.9 10/11/19 BP 150/83 H 10/11/19 Blood Pressure Location Rt brachial 10/11/19 Position Sitting 10/11/19 Respiration 18 10/11/19 Pulse 82 10/11/19 Pulse Source Monitor 10/11/19 Temp 98.2 F 10/11/19 Temp Source Oral 10/11/19 Pulse Oximetry (%) 96 10/11/19 Oxygen Delivery Method room air Intake Visit Reasons: Wants to discuss thyroidectomy Chief Complaint: discuss thyroidectomy Piano Tuner Required: No Is patient in pain?: No Allergies ibuprofen [From Motrin] Allergy (Unknown, Verified 10/11/19 13:15) Unknown vinyl ether Adverse Reaction (Verified 10/11/19 13:15) Rash Medications doxycycline hyclate 50 mg capsule 50 mg PO DAILY cap 09/01/18 [History Confirmed 10/11/19] sertraline 50 mg tablet 50 mg PO DAILY 09/01/18 [History Confirmed 10/11/19] hydroxyzine HCl 50 mg tablet 50 mg PO BID tab 02/09/19 [History Confirmed 10/11/19] albuterol sulfate 2.5 mg INHALATION Q6HWA.RT #180 vial 09/10/19 [Rx Confirmed 10/11/19] albuterol sulfate 90 mcg/actuation aerosol inhaler 2 puff INHALATION Q6H PRN #6.7 g 09/10/19 [Rx Confirmed 10/11/19] budesonide-formoterol HFA 160 mcg-4.5 mcg/actuation aerosol inhaler 2 inh INHALATION BID #10.2 g 09/10/19 [Rx Confirmed 10/11/19] montelukast 10 mg tablet 10 mg PO QPM #1 tab 09/10/19 [Rx Confirmed 10/11/19] [facility] History Multinodular goiter (nontoxic) (Acute) thyroid nodules (Acute) Seborrheic keratoses (Acute) Tobacco abuse (Chronic) Asthma-chronic obstructive pulmonary disease overlap syndrome (Chronic) Vocal cord dysfunction (Suspected) RAMO (obstructive sleep apnea) (Suspected) Hemorrhoids (Acute) Constipation (Acute) Asthma (Acute) COPD (chronic obstructive pulmonary disease) (Acute) Shortness of breath (Acute) Anxiety (Acute) Depression (Acute) Arthritis (Acute) Fatigue (Acute) Hyperthyroidism (Acute) benign colloid nodule (Acute ~05/08/19) Surgical History Hx of needle biopsy (Acute) history shave biopsy lower abdomen (Acute ~02/13/19) Hx of biopsy (Acute) History of surgical removal of skin lesion (Acute) Hx of fracture of femur (Acute) History of partial hysterectomy (Acute) History of surgical removal of pilonidal cyst (Acute) Hx of section (Acute) Family History Mother Diabetes Father Diabetes Bleeding disorder hx of blood clots Brother Diabetes Social History (Updated 10/11/19 @ 13:27 by Chele Delvalle MD) Smoking Status: Current every day smoker alcohol intake: never substance use type: does not use caffeine: Yes what type of physical activity do you participate in: none frequency: does not exercise seatbelt use: always HPI HPI HPI: CRYSTAL FLORES, is a 49 F who presents to the office today for HPI HPI Surgical H&P: Yes HPI: CRYSTAL FLORES, is a 49 F who presents to the office today for Evaluation for thyroid surgery.Patient is well-known to me in the past for undergoing a fine-needle aspiration. I saw her last year and she had a thyroid ultrasound which showed a highly suspicious nodules on the left side. Fine-needle aspiration was completed which showed a benign colloid nodule with a few focal Hurthle cell changes. Patient was seen by her violin mechanic Dr. Hernandez in [place]. He thought the best thing to do for her would be for her to undergo a total thyroidectomy. The patient is here for evaluation and scheduling. ROS General General: Yes weight change and fatigue; no appetite, colon cancer, breast cancer or weakness HEENT HEENT: Yes swollen glands; no difficulty swallowing, eye injury, eye surgery or hoarseness Endo Endocrine: Yes thyroid disease; no diabetes mellitus, thyroid cancer, Hair loss, heat intolerance or cold intolerance Additional Details: Hyperthyroidism Skin Skin: No rash or changing moles Breast Breast: No left breast lump, right breast lump, nipple discharge, breast pain, abnormal mammogram, abnormal US or breast enlargement Musc Musculoskeletal: Yes back problems, arthritis and rheumatoid arthritis; no gout or joint pain Cardio Cardiovascular: No murmur, pacemaker, heart disease, atrial fibrillation, high blood pressure, heart attack, heart stent, palpitations, shortness of breat with exertion or chest pain Psych Psychiatric: Yes depression and anxiety; no hearing voices Resp Respiratory: Yes shortness of breath, No sleep apnea, Yes cough, No COPD, Yes asthma, No emphysema, No wheezing Gastro Gastrointestinal: No abdominal pain, Yes nausea or vomiting, No diarrhea, No constipation, No blood in stool, No acid reflux, No hemorrhoids, No ulcers, No gallbladder problem, No black,tarry stools Asa Hematologic: No blood thinners, No blood disorders, No bleeding, No anemia, No blood clots Neuro Neurologic: No system reviewed and no additional complaints, except as docu, No as per HPI, No abnormal walking, No abnormal hearing, No abnormal movements, No abnormal speech, No behavioral changes, No burning sensations, No confusion, No seizure-like activity, No unsteadiness, No dizziness, No localized weakness, No frequent falls, No headache(s), No lack of coordination, No loss of vision, No memory loss, No numbness, No other visual disturbances, No radiating pain, No restless legs, No sensory deficit, No fainting, No tingling, No tremor(s), No weakness, No other Exam Const General: no acute distress, well developed, well hydrated Orientation: oriented to person, oriented to place, oriented to time [facility] Head: normocephalic, atraumatic Ears: external ears normal Mouth: moist mucous membranes Other: Thyroid Exam: No hard palpable nodules are identified Eyes Sclera: sclerae normal Pupils: normal by confrontation Neck Neck: no lymphadenopathy noted Neck mass: No Thyroid: thyroid normal, symmetrical Chest Chest palpation & inspection: normal inspection of the chest Breast Palpation: No nipple discharge Resp Effort & Inspection: normal respiratory effort Auscultation: clear to auscultation bilaterally Percussion: percussion normal Cardio Rate: regular rate Rhythm: regular rhythm Heart Sounds: no murmurs GI Palpation: soft, no hepatosplenomegaly, no masses, nontender Rectal Exam: other Other: Rectal exam deferred. Extrem General: normal to inspection, no clubbing, cyanosis or edema Assessment & Plan Problems 1. Multinodular goiter (nontoxic) E04.2 Plan Plan will be to perform a total thyroidectomy on the patient. Risk benefits include bleeding infection possible injury to the parathyroid glands and/or recurrent laryngeal nerves have been reviewed. Patient also understands that blood clots heart attacks pneumonias and strokes or other pulmonary problems could arise from her general anesthetic. All questions asked were answered and she is willing to proceed. Coding Level of Care Code Off vis,est,level 3 Diagnoses Multinodular goiter (nontoxic) E04.2 10/11/19 1327 <Electronically signed by Chele landaverde MD> Date _ Chele Delvalle MD I have re-examined the patient. There are no clinical changes since date of exam.
[2019-10-11 13:16] VITALS: BMI 46.5
[2019-10-22] VITALS (15 sets, daily range): BP systolic 119–194; BP diastolic 71–117; PULSE 57–87; RESP 14–18; TEMP 36.1–37.1; O2SAT 92–98; BMI 47.7
--- NOTE | 2019-10-22 09:39 | EKG12_ITS ---
Test Reason : PRE OP Blood Pressure : / mmHG Vent. Rate : 060 BPM Atrial Rate : 060 BPM P-R Int : 140 ms QRS Dur : 072 ms QT Int : 414 ms P-R-T Axes : 063 029 032 degrees QTc Int : 414 ms Normal sinus rhythm Normal ECG Confirmed by EFREN STRINGER, OLGA ([id number]), medical editor MIKE LEVINE ([id number]) on 10/27/2019 4:38:00 PM Referred By: Chele Delvalle Confirmed By:OLGA SCHWARTZ MD
[2019-10-22 09:57] LABS: Absolute Lymphocyte Count 1.46 X10^3/uL (0.83-4.51); Absolute Neutrophil Count 3.4 X10^3/uL (2.0-7.7); Basophil# 0.03 X10^3/uL; Basophil% 0.5 % (0-1); Eosinophil# 0.11 X10^3/uL; Hematocrit 41.5 % (37-47); Hemoglobin 13.3 g/dL (12.0-15.0); Lymphocyte # 1.46 X10^3/ul (4.0); Lymphocyte % 26.6 % (19-41); Mean Corpuscular Hgb 27.8 pg (27.0-32.0); Mean Corpuscular Volume 86.8 fL (81-99); Mean Platelet Vol. 11.8 fl (6.2-12.0); Monocyte# 0.49 X10^3/uL; Monocyte% 8.9 % (0-10); NRBC Flagged by Analyzer 0 % (0-5); Neutrophil # 3.38 X10^3/uL (2.7-7.7); Neutrophil % 61.6 % (47-70); Platelet Count 191 K/mm3 (150-450); RBC Distribution Width CV 13.3 % (11.6-14.6); RBC Distribution Width SD 42.1 fl (35.1-43.9); Red Blood Count 4.78 M/mm3 (4.2-5.4); White Blood Count 5.5 K/mm3 (4.4-11.0)
[2019-10-22] MEDS: Lactated Ringers 1,000 ML 100 ML IV ×2 (09:58→12:35)
[2019-10-22 10:08] LABS: International Normalized Ratio 0.9; Prothrombin Time (Protime)PT. 12.2 SECONDS (11.7-14.9)
[2019-10-22 10:09] LABS: Partial Thromboplast Time 34.1 Seconds (24.1-36.2)
[2019-10-22 10:18] LABS: Vitamin B12 351 pg/mL (211-911); Vitamin D,25 Hydroxy 40.1 ng/mL
[2019-10-22 10:21] LABS: AST(SGOT) 16 U/L (15-37); Alanine Aminotransfer ALT/SGPT 26 U/L (13-56); Albumin, Serum 3.4 g/dL (3.2-5.0); Alkaline Phosphatase 65 U/L (45-117); Anion Gap 3 (5-15); BUN 19 mg/dL (7-18); BUN/Creat Ratio 20.2 RATIO (10-20); Calcium,Total 8.7 mg/dL (8.5-10.1); Chloride 107 mmol/L (98-107); Cholesterol 175 mg/dL (200); Creatinine, Serum 0.94 mg/dL (0.55-1.02); EST Glomerular Filtration Rate 68 mL/min (>60); Est Glom Filt Rate - Afr Amer 82 mL/min (>60); Estimated Creatinine Clearance 71.17 ml/min; Globulin 3.3 g/dL (2.2-4.2); Glucose 97 mg/dL (74-106); High Density Lipoprotein 68 mg/dL; Potassium 4.4 mmol/L (3.5-5.1); Protein, Total 6.7 g/dL (6.4-8.2); Sodium Level 141 mmol/L (136-145); Triglycerides 54 mg/dL; Very Low Density Lipoprotein 11 mg/dL (5-40)
[2019-10-22 10:23] LABS: AST(SGOT) 16 U/L (15-37); Alanine Aminotransfer ALT/SGPT 26 U/L (13-56); Albumin, Serum 3.5 g/dL (3.2-5.0); Alkaline Phosphatase 65 U/L (45-117); Bilirubin, Direct 0.06 mg/dL (0.00-0.30); Globulin 3.3 g/dL (2.2-4.2); Protein, Total 6.8 g/dL (6.4-8.2); Thyroid Stim Hormone (TSH) 0.15 uIU/mL (0.358-3.74)
[2019-10-22 10:26] LABS: Microalbumin,Random Urine < 5.0 mg/L (NO RANGE EST.)
[2019-10-22] MEDS: Cefazolin 2 GM in 0.9% Normal Saline 100 ML IV (10:52)
--- NOTE | 2019-10-22 10:58 | PCM.OPRPT ---
Problem List (1) Multinodular goiter (nontoxic) Status: Acute Report of Operation Date of Procedure: 10/22/19 Pre-Operative Diagnosis: Multinodular goiter Post-Operative Diagnosis: Same Surgery/Procedure Performed:: Total thyroidectomy Type of Anesthesia:: General Anesthesiologist: Christian Mcgraw Specimen's removed: Total thyroid Estimated Blood Loss (mL): < 25 CC Description of Procedure: Patient was brought into the operating room. Placed in the supine position. Under excellent general trach intubation towel was placed underneath the shoulder blades the neck was extended sterilely prepped draped usual fashion. Cervical incision was made after local was injected. Subplatysmal flaps were created with use electrocautery. Gelpi retractor was placed inside the wound the midline strap muscles were opened. I started on the left side going to the superior pole vessels took these down with harmonic dissector to the middle thyroidal vein down with harmonic dissector and then went inferiorly and took the inferior thyroid vessels down with harmonic dissector rotated the gland from lateral to medial standpoint taking the gland off of Roger's ligament and in the process identifying both the superior and inferior parathyroid glands I stayed away from the recurrent laryngeal nerve. I took the isthmus off the thyroid I then went to the superior pole vessels on the right side taking these down with her sundeep dissector middle thyroidal vein down with harmonic dissector and finally the inferior thyroid vessels down with harmonic dissector once again rotating the gland from lateral to medial standpoint identifying both the superior and inferior parathyroid glands and again staying away from the recurrent laryngeal nerve. Roger's ligaments were transected with harmonic dissector suture was placed in the right side of the thyroid it was inspected no parathyroid tissue was identified. I sent the gland to pathology for permanent sectioning. In the process of opening and coming down I did encounter 1 enlarged lymph node which I took and sent to pathology for permanent sectioning in the central compartment. Midline strap muscles were brought together with a 2-0 Vicryl. Subplatysmal flaps were brought together with a 3-0 Vicryl deep dermal stitches of 3-0 Vicryl then a running 4-0 Monocryl Dermabond was applied sterile dressings were applied and the patient tolerated the procedure well. - Admit VTE Documentation VTE Present on Admission: No VTE Mechan Device Prophylaxis: SCD's VTE Pharm Prophylaxis ordered?: No Reason prophylaxis not ordered:: Treatment Not Indicated
--- NOTE | 2019-10-22 11:00 | THYROID_PTH ---
PATIENT: CRYSTAL FLORES [place] [facility] [place][id number] AGE/SX: 49/F ROOM: RE10/22/[address]: Dr. Chele Delvalle MD : 1970 BED: DIS: 10/23/2019 SPEC #: [id number] RECD: 10/22/19 14:10 STATUS: MIKE BELL #: [id number] [place]: 10/22/19 11:[address]: Chele Delvalle DEPT: SURGICAL PATHOLOGY RECD BY: Karolina Huber Tissues: A - Lymph node of neck, NOS B - Thyroid gland, NOS Procedures: Surgery Specimen Level V HEADER OPERATION: Total thyroidectomy PRE-OP DIAGNOSIS: Multinodular goiter, nontoxic TISSUE SUBMITTED: A - Central compartment lymph node, B - Total thyroid MICROSCOPIC DIAGNOSIS A. Central compartment lymph node, biopsy: A piece of benign thyroid tissue. B. Thyroid, total thyroidectomy: Multinodular goiter. See comment. SJ:jefe 10/26/19 COMMENT B. The largest nodule in the right lobe also shows focal calcification and H?rthle change. The largest nodule in the left lobe shows adenomatoid changes. Please make reference to previous specimen ([id number]) left thyroid nodules, ultrasound-guided fine needle aspiration x2 with diagnosis of consistent with benign colloid nodule with focal H?rthle cell features. MICROSCOPIC DESCRIPTION Slides are reviewed. GROSS DESCRIPTION A - Received in fixative is one container labeled with the patient's name and designated central compartment lymph node. The specimen consists of a piece of hamilton-pink soft tissue measuring 0.7 x 0.7 x 0.5 cm. The specimen is bisected and submitted entirely in one cassette. / OLLIE:jefe 10/22/19 B - Received in fixative is one container labeled with the patient's name and designated total thyroid. The specimen consists of a total thyroidectomy specimen weighing 43.8 gm. A suture is noted at the right thyroid lobe. The right thyroid lobe measures 6 x 4 x 3 cm and left thyroid lobe measures 6.5 x 2.5 x 1.5 cm. No external parathyroid gland is identified. The isthmus is very narrow and measures 1 x 0.5 x 0.2 cm. A metallic staple is also noted in the isthmus. The resection margins are inked as follows: posterior surface right lobe, left lobe and isthmus - black, anterior surface right lobe - blue, anterior surface left lobe - green and anterior surface isthmus - yellow. Sections of the isthmus do not reveal any obvious mass lesion. Sections of the right lobe reveal multiple nodules. The largest nodule measures 3 cm in greatest dimension. Some of the nodules show cystic cut surfaces. The left lobe also reveals multiple nodules. The largest nodule measures 2 cm in greatest dimension. [employer] sections are submitted in 15 cassettes as follows: 1 - isthmus, entirely submitted, 2-10 - right lobe, 11-15 - left lobe. / SJ:rg 10/25/19 TC:5 CPT: 63663, 92323
[2019-10-22] MEDS: BUPIVACAINE LIPOSOME/PF 20 ML VIAL OPERA.SITE (12:00)
[2019-10-22] MEDS: hydrOXYzine PAM 25 MG Capsule 50 MG PO ×2 (15:09→21:21)
[2019-10-22] MEDS: Lactated Ringers 1,000 ML 75 ML IV (15:10)
[2019-10-22 18:18] LABS: Calcium,Total 8.7 mg/dL (8.5-10.1)
[2019-10-22] MEDS: oxyCODONE 5 MG Tablet PO ×2 (18:28→23:40)
[2019-10-22] MEDS: HYDROmorphone 1 MG/ML Syringe IV (19:51)
[2019-10-22] MEDS: Albuterol 2.5 MG/3 ML VIAL.NEB. INHALATION (20:37)
[2019-10-22] MEDS: Budesonide Respules 0.5 MG/2 ML AMPUL.NEB. INHALATION (20:37)
[2019-10-22] MEDS: Calcium Carbonate 500 MG Tablet 1000 MG PO (21:20)
[2019-10-22] MEDS: Montelukast 10 MG Tablet PO (21:21)
[2019-10-22 21:24] LABS: Calcium,Total 8.5 mg/dL (8.5-10.1)
[2019-10-22] MEDS: Sertraline 50 MG Tablet PO (21:29)
[2019-10-23 02:08] VITALS: BP 136/86; PULSE 67; RESP 16; TEMP 36.9; O2SAT 97
[2019-10-23] MEDS: HYDROmorphone 1 MG/ML Syringe IV (02:15)
[2019-10-23 02:17] VITALS: O2SAT 97
--- NOTE | 2019-10-23 03:45 | NURSING ---
Pt refusing to wear continuous pulse oximeter at this time. Pt educated on importance of wearing pulse ox and monitoring her oxygen levels. Pt continuing to refuse. Will continue to monitor and assess.
[2019-10-23] MEDS: Lactated Ringers 1,000 ML 75 ML IV (03:55)
[2019-10-23 04:01] VITALS: PULSE 73; RESP 18
[2019-10-23] MEDS: Albuterol 2.5 MG/3 ML VIAL.NEB. INHALATION ×2 (04:05→06:57)
--- NOTE | 2019-10-23 06:27 | PCM.DC.GS ---
Discharge Diet: Light diet - advance as tolerated - If you have questions about your diet instructions, please talk to your doctor. Discharge Activity: May Not Drive - for 1 week or while taking narcotic pain medicine. May shower in (days): 1 Lifting Restrictions: 10 pounds Call your doctor if your incision/area has: Continuous Slow Oozing, Sudden Increased Bleeding, Increased Pain/ Swelling, Increased Redness, Foul Smelling Discharge Call your doctor if you observe: Fever of 101 or Higher Suture Line Care: Avoid Pulling/Pushing, Avoid Pinching/Bending Additional Dressing/Incision Instructions:: Change or remove dressing in 4 days. Leave steri-strips in place for 1 week. Allergies/Adverse Reactions: Allergies ibuprofen [From Motrin] Allergy (Unknown, Verified 10/21/19 17:01) Unknown vinyl ether Adverse Reaction (Verified 10/21/19 17:01) Rash Medications to take at Discharge doxycycline hyclate 50 mg capsule 50 mg PO DAILY cap 09/01/18 sertraline 50 mg tablet 50 mg PO DAILY 09/01/18 hydroxyzine HCl 50 mg tablet 50 mg PO TID tab 02/09/19 albuterol sulfate 2.5 mg INHALATION Q6HWA.RT #180 vial 09/10/19 albuterol sulfate 90 mcg/actuation aerosol inhaler 2 puff INHALATION Q6H PRN #6.7 g 09/10/19 budesonide-formoterol HFA 160 mcg-4.5 mcg/actuation aerosol inhaler 2 inh INHALATION BID #10.2 g 09/10/19 montelukast 10 mg tablet 10 mg PO QPM #1 tab 09/10/19 metFORMIN HCl [Glucophage] 250 mg PO BREAKFAST 10/21/19 Oxycodone HCl/Acetaminophen [Percocet 5/325] 1 - 2 tab PO Q4H PRN PRN 6 Days #30 tab 10/22/19 Levothyroxine Sodium [Levoxyl] 100 mcg PO DAILY #30 tab 10/23/19 The following prescriptions were given: Levothyroxine Sodium [Levoxyl] 100 mcg PO DAILY #30 tab Transmission Status: Pending to [id number] Oxycodone HCl/Acetaminophen [Percocet 5/325] 1 - 2 tab PO Q4H PRN PRN 6 Days #30 tab PRN Reason: Pain Transmission Status: Received by [facility] [address] Orders to be completed after discharge: 12 Lead EKG [[facility]] Time Frame: 10/22/19, Facility: [facility], Location: Cardiovascular Services Primary Care Physician: BEBE WHEELER [Other] Test Results: Test results from this visit will be discussed in further detail at your follow-up appointment, if applicable. Please Follow Up With: Chele Delvalle MD - [phone] When: Call to make an appointment to be seen in about 10 days.
[2019-10-23] MEDS: hydrOXYzine PAM 25 MG Capsule 50 MG PO (06:29)
[2019-10-23] MEDS: Calcium Carbonate 500 MG Tablet 1000 MG PO (06:29)
[2019-10-23] MEDS: Levothyroxine 100 MCG Tablet PO (06:29)
[2019-10-23] MEDS: oxyCODONE 5 MG Tablet PO (06:34)
[2019-10-23] MEDS: Budesonide Respules 0.5 MG/2 ML AMPUL.NEB. INHALATION (06:57)
[2019-10-23 06:58] VITALS: PULSE 78; RESP 20; O2SAT 94
[2019-10-23 07:09] LABS: Absolute Lymphocyte Count 1.54 X10^3/uL (0.83-4.51); Absolute Neutrophil Count 9.5 X10^3/uL (2.0-7.7); Basophil# 0.01 X10^3/uL; Basophil% 0.1 % (0-1); Eosinophil# 0.01 X10^3/uL; Eosinophils% 0.1 % (0-5); Hematocrit 40.2 % (37-47); Hemoglobin 13.1 g/dL (12.0-15.0); Lymphocyte # 1.54 X10^3/ul (4.0); Mean Corp Hgb Conc 32.6 g/dL (32-36); Mean Corpuscular Hgb 28.4 pg (27.0-32.0); Mean Platelet Vol. 12.3 fl (6.2-12.0); Monocyte# 0.81 X10^3/uL; Monocyte% 6.8 % (0-10); NRBC Flagged by Analyzer 0 % (0-5); Neutrophil # 9.45 X10^3/uL (2.7-7.7); Neutrophil % 79.7 % (47-70); Platelet Count 200 K/mm3 (150-450); RBC Distribution Width CV 13.3 % (11.6-14.6); RBC Distribution Width SD 42.2 fl (35.1-43.9); Red Blood Count 4.62 M/mm3 (4.2-5.4); White Blood Count 11.9 K/mm3 (4.4-11.0)
[2019-10-23 07:58] LABS: AST(SGOT) 33 U/L (15-37); Alanine Aminotransfer ALT/SGPT 26 U/L (13-56); Albumin, Serum 3.4 g/dL (3.2-5.0); Alkaline Phosphatase 60 U/L (45-117); Anion Gap 6 (5-15); BUN 20 mg/dL (7-18); BUN/Creat Ratio 21.9 RATIO (10-20); Calcium,Total 8.1 mg/dL (8.5-10.1); Chloride 102 mmol/L (98-107); Creatinine, Serum 0.91 mg/dL (0.55-1.02); EST Glomerular Filtration Rate 70 mL/min (>60); Est Glom Filt Rate - Afr Amer 84 mL/min (>60); Estimated Creatinine Clearance 73.52 ml/min; Globulin 3.4 g/dL (2.2-4.2); Glucose 115 mg/dL (74-106); Potassium 3.9 mmol/L (3.5-5.1); Protein, Total 6.8 g/dL (6.4-8.2); Sodium Level 138 mmol/L (136-145)
[2019-10-23 08:00] VITALS: BP 127/76; PULSE 75; RESP 16; TEMP 37.1; O2SAT 94
[2019-10-23] MEDS: metFORMIN HCl 500 MG Tablet 250 MG PO (08:16)
== END 2019-10-23 09:01 | disposition home or self-care (01) ==
LOC: SDC 08:59 → AC 09:00 → MS3 11:41
PROVIDERS: Anesthesiology; Referring Provider Surgery; Visit Provider Surgery
PROC: (CPT 60240; principal; 2019-10-22 10:45)
DX: E04.2 Nontoxic multinodular goiter (principal); F17.200 Nicotine dependence, unspecified, uncomplicated; Z88.6 Allergy status to analgesic agent
CPT/HCPCS: 00320; 60240; 36415; 80053; 80061; 80076; 82043; 82306; 82310; 82570; 82607; 83036; 84443; 85025; 85610; 85730; 88307; 93005; 94640; 97802; 99251; 99406; J7120; G0463

== ENCOUNTER 2021-07-21 23:47 | Emergency (ER) | payer MEDICAID, SELFPAY ==
[2021-07-21 23:48] VITALS: BP 135/82; PULSE 92; RESP 18; TEMP 36.7; O2SAT 98; BMI 45.3
--- NOTE | 2021-07-22 00:05 | EX.ED.DYSGE1 ---
HPI History of Present Illness Chief Complaint: Cough Narrative Narrative: Patient is a 51-year-old female with history of COPD. She used to smoke 2 packs a day and is currently smoking 1 pack a day. She states that she gets bronchitis frequently. She states she has been battling various episodes of bronchitis for the last 4-month. She states it is to the point where she has been unable to keep fluid down because the congestion has led to bouts of coughing and vomiting. She reports that she was tested on an outpatient basis for Covid just the other day. She states that with her symptoms she feels she is becoming dehydrated or possibly developing pneumonia so she presents to the ER for evaluation [facility] Medical History (Updated 07/22/21 @ 01:[address] Cj Wesley, ) Anxiety Arthritis Asthma Asthma-chronic obstructive pulmonary disease overlap syndrome benign colloid nodule (~05/08/19) Constipation COPD (chronic obstructive pulmonary disease) Depression Fatigue Hemorrhoids Hyperthyroidism Multinodular goiter (nontoxic) RAMO (obstructive sleep apnea) Seborrheic keratoses Shortness of breath thyroid nodules Tobacco abuse Vocal cord dysfunction Home Medications doxycycline hyclate 50 mg capsule 50 mg PO DAILY cap 09/01/18 [History Last Taken Unknown] albuterol sulfate 2.5 mg INHALATION Q6HWA.RT #180 vial 09/10/19 [Rx Last Taken 10/22/19 07:40 2.5 MG] metformin 250 mg PO BREAKFAST 10/21/19 [History Last Taken Unknown] levothyroxine 100 mcg PO DAILY #30 tab 10/23/19 [Rx Last Taken Unknown] albuterol sulfate 90 mcg/actuation aerosol inhaler 2 puff INHALATION Q4H PRN #1 device 03/16/20 [Rx Last Taken Unknown] budesonide-formoterol HFA 160 mcg-4.5 mcg/actuation aerosol inhaler 2 inh INHALATION BID #10.2 g 03/16/20 [Rx Last Taken Unknown] tiotropium bromide 2.5 mcg/actuation mist for inhalation 2 puff INHALATION QDAY #4 g 03/16/20 [Rx Last Taken Unknown] montelukast 10 mg tablet 10 mg PO QPM #1 tab 03/31/20 [Rx Last Taken Unknown] azelastine 2 spray INTRANASAL BID #30 ml 07/22/21 [Rx Last Taken Unknown] prednisone 40 mg PO DAILY 5 Days #10 tab 11/28/21 [Rx Last Taken Unknown] promethazine-codeine 5 ml PO Q6H PRN 7 Days #140 ml 07/22/21 [Rx Last Taken Unknown] Allergy/AdvReac Type Severity Reaction Status Date / Time ibuprofen [From Motrin] Allergy Unknown Unknown Verified 07/21/21 23:52 vinyl ether AdvReac Rash Verified 07/21/21 23:52 Family History Mother Diabetes Father Diabetes Bleeding disorder hx of blood clots Brother Diabetes Surgical History History of partial hysterectomy History of surgical removal of pilonidal cyst History of surgical removal of skin lesion history shave biopsy lower abdomen (~02/13/19) Hx of biopsy Hx of section Hx of fracture of femur Hx of needle biopsy Social History (Updated 03/17/20 @ 08:[address] Kai Blanchard, DO) Smoking Status: Current every day smoker tobacco type: cigarettes alcohol intake: never substance use type: does not use caffeine: Yes what type of physical activity do you participate in: none frequency: does not exercise seatbelt use: always ROS ROS ED Constitutional Constitutional ED: Denies chills or fever(s) ENT ENT ED: Reports rhinorrhea and sore throat Cardiovascular Cardiovascular: Denies chest pain Respiratory/Chest Respiratory/Chest: Reports cough, dyspnea and sputum Gastrointestinal Gastrointestinal: Denies abdominal pain, diarrhea, nausea or vomiting Genitourinary Genitourinary ED: Denies dysuria Musculoskeletal Musculoskeletal: Denies myalgias Integumentary Denies rash Neurologic Neurologic: Denies headache(s) Hematologic/Lymphatic Hematologic/Lymphatic: Denies easy bleeding or easy bruising EXAM Physical Exam Const Vital Signs: 07/21/21 23:48 07/22/21 00:15 07/22/21 00:21 Temperature 98.1 F Temperature Source Temporal Pulse Rate 92 91 Respiratory Rate 18 16 Respiratory Pattern Normal Blood Pressure 135/82 H Blood Pressure Mean 99 Pulse Ox 98 Oxygen Delivery Method Room Air Room Air Positive well nourished, well developed and obese General Appearance ED: well developed Nutritional Appearance: obese HEENT Reports moist mucous membranes HEENT Narrative: Nasal mucosa is hyperemic and boggy. There is cobblestoning the posterior pharynx consistent with sinus drainage but no airway edema or compromise Eyes PERRL and EOMs intact bilaterally Neck supple and no JVD Resp normal respiratory effort Resp Narrative: Breath sounds are diminished throughout with diffuse expiratory wheeze consistent with COPD but no signs of respiratory distress Cardio regular rate and regular rhythm Rate: other Other Details: Radial pulses are plus 2 out of 4 bilaterally are equal and symmetric Extremity normal to inspection Extremity Narrative: No asymmetric edema no pitting edema negative Homans' sign bilaterally Neuro oriented x3 and CN's II-XII intact bilaterally Sensorium / Orientation: alert Psych mental status grossly normal Skin no rashes or lesions noted MDM MDM MDM Narrative Medical decision making narrative: Patient presented to the ER in no acute respiratory distress satting in the mid 90s on room air. With her persistent cough and congestion I feel this is most likely COPD exacerbation. We discussed possible Covid swab but patient states she has had one performed recently which was negative. Therefore elected to perform a chest x-ray. This showed some inflammatory changes without obvious pneumonia. She was given breathing treatments as well as IV steroids and on reevaluation had improvement of her breath sounds and remained in no acute distress. Therefore at this time as her symptoms are not requiring supplemental oxygen and she has had no derangement to her vitals I do not feel there is need for further work-up and patient can be discharged home with symptomatic care Radiography Chest X-Ray - ED: 2 View, Read by ED Physician and Chronic Changes Discharge Plan Triage Chief Complaint: Cough ED Provider: Cj Wesley Dx/Rx/DC Orders Clinical Impression: Acute exacerbation of chronic obstructive pulmonary disease Instructions: COPD: Chronic Coughing Prescriptions: New prednisone 20 mg tablet 40 mg PO DAILY 5 Days Qty: 10 RF: 0 azelastine 137 mcg (0.1 %) aerosol,spray 2 spray intranasal BID Qty: 30 RF: 0 promethazine-codeine 6.25-10 mg/5 mL syrup 5 ml PO Q6H PRN (Reason: cough) 7 Days Qty: 140 RF: 0 No Action doxycycline hyclate 50 mg capsule 50 mg PO DAILY RF: 0 albuterol sulfate 90 mcg/actuation HFA aerosol inhaler 2 puff inhalation Q4H PRN (Reason: shortness of breath or wheezing) Qty: 1 RF: 6 Symbicort 160-4.5 mcg/actuation HFA aerosol inhaler 2 inh INHALATION BID Qty: 10.2 RF: 6 Spiriva Respimat 2.5 mcg/actuation mist 2 puff inhalation QDAY Qty: 4 RF: 6 metformin 500 MG tablet 250 mg PO BREAKFAST RF: 0 levothyroxine 100 MCG tablet 100 mcg PO DAILY Qty: 30 RF: 12 albuterol sulfate 2.5 mg /3 mL (0.083 %) solution for nebulization 2.5 mg Inhalation Q6HWA.RT Qty: 180 RF: 11 montelukast [Singulair] 10 mg tablet 10 mg PO QPM Qty: 1 RF: 11 Stand Alone Forms: ED Work / School Excuse Primary Care Provider: Care Physician,No Primary Referrals: Jenny Gonzalez DO [STAFF PHYSICIAN] - 1 Week if not improving Care Physician,No Primary [Primary Care Provider] - Disposition Disposition: Home, Self Care
[2021-07-22 00:15] VITALS: PULSE 91; RESP 16
[2021-07-22 00:21] VITALS: O2SAT 96
[2021-07-22] MEDS: 0.9% Normal Saline 1,000 ML 999 ML IV (00:22)
[2021-07-22] MEDS: MethylPREDNISolone 125 MG/2 ML Vial IV (00:22)
[2021-07-22] MEDS: Albuterol 2.5 MG/3 ML VIAL.NEB. INHALATION (00:25)
[2021-07-22] MEDS: Ipratropium/Albuterol Sulfate 3 ML AMPUL.NEB INHALATION (00:25)
--- NOTE | 2021-07-22 00:45 | RAD_ITS ---
STUDY: X-RAY CHEST REASON FOR EXAM: Female, 51 years old. cough TECHNIQUE: 2 views COMPARISON: None. FINDINGS: Cardiomediastinal silhouette is unremarkable. Costophrenic angles are sharp. Patchy opacities noted in the periphery of the bilateral mid to lower lung zones.. The trachea is midline. There is no pneumothorax. Multifocal thoracic spondylosis. RAD/Chest PA and Lateral IMPRESSION: Patchy opacities in the periphery of the bilateral mid to lower lung zones, suspicious for multifocal pneumonia such as Covid 19. Clinical correlation recommended. Electronically Signed: Steve Urrutia MD at 2:41 EST Tel , Service support ,
[2021-07-22 01:50] VITALS: RESP 16
[2021-07-22 01:56] VITALS: BP 124/76; PULSE 89; RESP 20; O2SAT 95
== END 2021-07-22 01:57 | disposition home or self-care (01) ==
PROVIDERS: Emergency Provider Emergency Medicine
DX: J44.1 Chronic obstructive pulmonary disease with (acute) exacerbation (principal); E66.9 Obesity, unspecified; F17.210 Nicotine dependence, cigarettes, uncomplicated; E05.20 Thyrotoxicosis with toxic multinodular goiter without thyrotoxic crisis or storm; F32.A Depression, unspecified; G47.33 Obstructive sleep apnea (adult) (pediatric); Z79.1 Long term (current) use of non-steroidal anti-inflammatories (NSAID); Z79.52 Long term (current) use of systemic steroids; Z79.84 Long term (current) use of oral hypoglycemic drugs
CPT/HCPCS: 71046; 94640; 96361; 96374; 99283; J7030

== ENCOUNTER → 2021-08-07 15:32 | Outpatient (CLI) | payer MEDICAID, SELFPAY ==
--- NOTE | 2021-08-07 15:35 | RAD_ITS ---
STUDY: X-RAY CHEST REASON FOR EXAM: Female, 51 years old. Fever and cough TECHNIQUE: 2 PA and lateral views of the chest. COMPARISON: None. FINDINGS: The lungs are clear and expanded. There is no demonstrated pleural abnormality. Normal size heart. Normal mediastinum and melanie. Normal visualized pulmonary arteries. Normal visualized aortic arch and descending thoracic aorta. Normal visualized thoracic spine. Normal visualized ribs, clavicles, and shoulders. There is no demonstrated abnormality of the visualized soft tissue structures of the upper abdomen. RAD/Chest PA and Lateral IMPRESSION: No acute pulmonary process Electronically Signed: Umang Kearney MD at 16:54 EST , Service support ,
== END ==
PROVIDERS: PCP Internal Medicine; Referring Provider Internal Medicine; Visit Provider Internal Medicine
DX: R05.9 Cough, unspecified (principal)
CPT/HCPCS: 71046

== ENCOUNTER 2022-10-24 11:44 | Emergency (ER) | payer MEDICAID, SELFPAY ==
[2022-10-24 11:45] VITALS: BP 152/98; PULSE 78; RESP 18; TEMP 36.8; O2SAT 100; BMI 42.9
--- NOTE | 2022-10-24 12:08 | EDS_ITS ---
HPI <REGINA Rogers - Last Filed: 10/24/22 13:57> History of Present Illness Chief Complaint: Cold Sx Narrative Narrative: Patient is a 52-year-old female with history of asthma, chronic bronchitis, tobacco use, hypothyroidism, bipolar who presents to the emergency department for multiple complaints. Patient states that she has had a sinus infection, cough for 11 days. She also presents with an abscess to the right side of her face to the right of her nose. She did see her marine equipment sales engineer a couple days ago who ordered her x-ray so she did not receive them. She was upset she did not get antibiotics for her sinus infection. Patient states that the abscess to her right side of her face is causing her discomfort she would like it drained. She would also like antibiotics for that as well. She denies any fever chills PFSH <REGINA Rogers - Last Filed: 10/24/22 13:57> PFSH Medical History (Reviewed 10/22/22 @ 13:34 by Jody Allred EMERGENCY MEDICINE SPECIALIST, EMERGENCY MEDICINE SPECIALIST-C) Anxiety Arthritis Asthma Asthma-chronic obstructive pulmonary disease overlap syndrome benign colloid nodule (~05/08/19) Bipolar 2 disorder Constipation COPD (chronic obstructive pulmonary disease) Decreased GFR Depression Fatigue Fatty liver Hemorrhoids Hyperthyroidism Multinodular goiter (nontoxic) RAMO (obstructive sleep apnea) Rectal bleeding Rectal discharge Seborrheic keratoses Shortness of breath thyroid nodules Tobacco abuse Vocal cord dysfunction Home Medications Nebulizer supplies #1 ea 08/20/21 [Rx Last Taken Unknown] albuterol sulfate 2.5 mg/3 mL (0.083 %) solution for nebulization 2.5 mg (3 mL) inhalation Q6HWA.RT #180 vials 08/20/21 [Rx Last Taken Unknown] guaifenesin 1,200 mg tablet, extended release 12 hr 1,200 mg PO Q12H #60 tabs 08/20/21 [Rx Last Taken Unknown] levothyroxine 200 mcg capsule 200 mcg PO DAILY 12/12/21 [History Last Taken Unknown] budesonide-formoterol HFA 160 mcg-4.5 mcg/actuation aerosol inhaler (Symbicort) 2 inh inhalation BID #10.2 grams 04/22/22 [Rx Last Taken Unknown] tiotropium bromide 2.5 mcg/actuation mist for inhalation (Spiriva Respimat) 2 puff inhalation QDAY #4 grams 04/22/22 [Rx Last Taken Unknown] lamotrigine 25 mg tablet See Rx Instructions PO .COMPLEX #98 tabs 10/16/22 [Rx Last Taken Unknown] albuterol sulfate 90 mcg/actuation aerosol inhaler 2 puff inhalation Q4H PRN s hortness of breath or wheezing #1 device 10/22/22 [Rx Last Taken Unknown] buspirone 30 mg tablet 30 mg PO DAILY 10/22/22 [History Last Taken Unknown] sertraline 50 mg tablet 50 mg PO DAILY 10/22/22 [History Last Taken Unknown] codeine 7.5 mg-guaifenesin 225 mg/5 mL oral liquid 4.5 ml PO Q6H PRN cough #120 mL 10/24/22 [Rx Last Taken Unknown] doxycycline hyclate 100 mg capsule 100 mg PO BID 10 days #19 caps 10/24/22 [Rx Last Taken Unknown] Allergy/AdvReac Type Severity Reaction Status Date / Time ibuprofen [From Motrin] Allergy Unknown Unknown Verified 10/22/22 13:26 bupropion [From Wellbutrin] AdvReac severe Verified 10/22/22 13:26 depression vinyl ether AdvReac Rash Verified 10/22/22 13:26 Family History (Reviewed 10/22/22 @ 13:34 by Jody Allred EMERGENCY MEDICINE SPECIALIST, EMERGENCY MEDICINE SPECIALIST-C) Mother Diabetes Father Diabetes Bleeding disorder hx of blood clots Brother Diabetes Surgical History (Reviewed 10/22/22 @ 13:34 by Jody Allred EMERGENCY MEDICINE SPECIALIST, EMERGENCY MEDICINE SPECIALIST-C) History of partial hysterectomy History of surgical removal of pilonidal cyst History of surgical removal of skin lesion history shave biopsy lower abdomen (~02/13/19) Hx of biopsy Hx of section Hx of fracture of femur Hx of needle biopsy Social History (Reviewed 10/22/22 @ 13:34 by Jody Allred EMERGENCY MEDICINE SPECIALIST, EMERGENCY MEDICINE SPECIALIST-C) Smoking Status: Current every day smoker tobacco type: cigarettes alcohol intake: never substance use type: does not use caffeine: Yes what type of physical activity do you participate in: none frequency: does not exercise seatbelt use: always ROS <REGINA Rogers - Last Filed: 10/24/22 13:57> ROS ED ROS Narrative Constitutional: Negative for fever, chills, weight loss, weakness Eyes: Negative for vision loss, vision change, double vision ENT: Negative for any sore throat, ear pain. Positive for congestion Cardiovascular: Negative for any chest pain, tightness, palpitations Respiratory: Negative for any cough, sputum production, hemoptysis, dyspnea, dyspnea on exertion, orthopnea Gastrointestinal: Negative for any abdominal pain, nausea, vomiting, diarrhea, constipation, blood in stool, blood in vomit : Negative for any urinary frequency, dysuria, retention, blood in urine Muscle skeletal: Negative for any muscle joint pain, stiffness, myalgias, arthralgias, neck pain, back pain Neurological: Negative for any headache, syncope, numbness or tingling, dizziness Skin: Negative for any rashes, itching, abrasions, lacerations. Positive for abscess to the right side of the face to the right of the midline of the nose just below the right eye Psychiatric: Negative for any depression, anxiety, stress, suicidal ideation, homicidal ideation Hematologic: Negative for any easy bruising, excessive bruising, easy bleeding Allergies: Negative for any eczema, hives, rash EXAM <REGINA Rogers - Last Filed: 10/24/22 13:57> Physical Exam Narrative Exam Narrative: Vital signs reviewed. Vital signs are stable, patient has a harsh cough HEET: Head normocephalic atraumatic, TMs clear bilaterally. Posterior pharynx is clear, moist mucous membranes. Nares clear bilaterally. Neck: Supple with no lymphadenopathy or tenderness. No signs of meningismus, negative jolt sign. Cardiac: Regular rate and rhythm no murmurs gallops or rubs, equal peripheral pulses bilaterally. Respiratory: Lungs clear to auscultation bilaterally. No chest tenderness. Abdomen: Soft, nontender, nondistended. No abdominal bruit or pulsatile masses. No hepatosplenomegaly Extremities: No peripheral edema, no signs of gross trauma or deformity. Active full range of motion of all extremities. Neuro: Cranial nerves II through XII intact, no focal neurological deficits. Skin: Clean dry and intact with no rash, purpura, petechiae, vesicles or pustules. Patient does have what appears to be a small abscess to the right of the nose, just below the eye, this does not involve the lower lobe. There is no ductal infection. This there appears to be superficial with a small area of fluctuance. Backs/flank: No CVA tenderness, no midline spinal tenderness, no deformity. Psych: Normal mood and affect. No SI, HI or acute psychosis. Const Vital Signs: 10/24/22 11:45 10/24/22 12:41 Temperature 98.2 F Temperature Source Temporal Pulse Rate 78 Respiratory Rate 18 Respiratory Effort Normal Non-Labored Respiratory Depth Normal Respiratory Pattern Normal Blood Pressure 152/98 H Blood Pressure Mean 116 Pulse Ox 100 Oxygen Delivery Method Room Air Room Air <Dr. Frank Chavez MD - Last Filed: 10/24/22 13:30> Physical Exam Const Vital Signs: 10/24/22 11:45 10/24/22 12:41 Temperature 98.2 F Temperature Source Temporal Pulse Rate 78 Respiratory Rate 18 Respiratory Effort Normal Non-Labored Respiratory Depth Normal Respiratory Pattern Normal Blood Pressure 152/98 H Blood Pressure Mean 116 Pulse Ox 100 Oxygen Delivery Method Room Air Room Air MDM <REGINA Rogers - Last Filed: 10/24/22 13:57> MDM Radiography Diagnostic Testing: Clinical Impression(s) from Imaging Studies Chest X-Ray 10/24/22 12:24 IMPRESSION: Normal x-ray examination of the chest. Electronically Signed: Gonzalez Shermna MD at 12:49 EST , Differential Diagnosis Chest pain/SOB: pneumonia and COPD Additional Tests and Interventions Diagnositc testing considered but not performed: Wound culture Medications considered but not ordered: Breathing treatments Treatment and Re-Evaluation :: Patient appears generally well, patient appears nontoxic, vital signs are stable. Patient presents the emergency department with 11 days of sinus pressure, cough as well as 2 days of concern for abscess to her right face. Patient did receive a two-view chest x-ray which was interpreted by the ER physician, this showed no acute process. Patient was tested for COVID-19, influenza, this was all negative. I was able to incise the area to the right side of her face, was able to use a 11 blade and make a very small incision, minimal gross fluid expelled. Patient's physical examination is consistent with a viral-like illness however patient will be treated for her cellulitis. Patient be treated with doxycycline, this will be used secondary to treating both sinus infection as well as cellulitis. I did speak with the patient, I do not believe that she is currently dealing with a bacterial sinus infection however she will be given doxycycline. Patient is happy with the plan of care. She will be instructed to return for any worsening symptoms. <Dr. Frank Chavez MD - Last Filed: 10/24/22 13:30> [facility] MDM Narrative Medical decision making narrative: Seen and evaluated independently and in conjunction with nurse practitioner. Agree with notes above unless documented otherwise. Patient states she has had sinus pain and sinus headaches nasal congestion and a cough with bronchospasm for the past 11 days. No fevers or chills, she has COPD and does not feel like it is exacerbated in this, but she states this is a long time for her to have a sinus infection, she has a history of them and they usually do not last this long. Additionally, painful swollen tender area just to the right of her nose that has come on within 1 or 2 days, it is tender, small abscess and induration just to the side of the nose. Mild surrounding cellulitis. There is no active drainage. She is conversive in full sentences. Mild ethmoid sinus and frontal sinus tenderness, no other significant sinus tenderness no purulent nasal edema. We will prescribe antibiotics to hopefully cover all of this, I think doxycycline is appropriate and she is requesting Robitussin- will give her a short prescription. Radiography Diagnostic Testing: Clinical Impression(s) from Imaging Studies Chest X-Ray 10/24/22 12:24 IMPRESSION: Normal x-ray examination of the chest. Electronically Signed: Gonzalez Sherman MD at 12:49 EST , Discharge Plan Triage Chief Complaint: Cold Sx Other Complaint: Abscess ED Midlevel Provider: Patrice Colon ED Provider: Frank Chavez Dx/Rx/DC Orders Clinical Impression: Viral syndrome, Abscess or cellulitis of nose, external Instructions: ED Abscess Antibiotic Treatment Only, ED Viral Syndrome (Adult) Prescriptions: New doxycycline hyclate 100 mg capsule 100 mg PO BID 10 Days Qty: 19 0RF codeine-guaifenesin 7.5-225 mg/5 mL liquid 4.5 ml PO Q6H PRN (Reason: cough) Qty: 120 0RF No Action albuterol sulfate 2.5 mg /3 mL (0.083 %) solution for nebulization 2.5 mg inhalation Q6HWA.RT Qty: 180 11RF guaifenesin 1,200 mg tablet extended release 12hr 1,200 mg PO Q12H Qty: 60 6RF (DME) Nebulizer supplies See Rx Instructions .Route .MEDSUPPLY Qty: 1 0RF Rx Instructions: As directed levothyroxine 200 mcg capsule 200 mcg PO DAILY Symbicort 160-4.5 mcg/actuation HFA aerosol inhaler 2 inh INHALATION BID Qty: 10.2 11RF Spiriva Respimat 2.5 mcg/actuation mist 2 puff inhalation QDAY Qty: 4 11RF sertraline 50 mg tablet 50 mg PO DAILY buspirone 30 mg tablet 30 mg PO DAILY albuterol sulfate 90 mcg/actuation HFA aerosol inhaler 2 puff inhalation Q4H PRN (Reason: shortness of breath or wheezing) Qty: 1 6RF Rx Instructions: administer with spacer lamotrigine 25 mg tablet See Rx Instructions PO .COMPLEX Qty: 98 0RF Rx Instructions: Take 25 mg orally every night for 14 days, then 50 mg orally every night for 14 days then 100 mg every night Primary Care Provider: Tiago Powell Referrals: Tiago Powell DO [Primary Care Provider] - Activity Restrictions/Additional Instructions: Take antibiotics until finished Disposition Disposition: Home, Self Care
--- NOTE | 2022-10-24 12:24 | RAD_ITS ---
STUDY: X-RAY CHEST REASON FOR EXAM: Female, 52 years old. Cough TECHNIQUE: PA and lateral views of the chest. COMPARISON: Comparison is made with prior study dated August 07, 2021. FINDINGS: The lungs are clear and expanded. There is no demonstrated pleural abnormality. Normal size heart. Normal mediastinum and melanie. Normal visualized pulmonary arteries. Normal visualized aortic arch and descending thoracic aorta. Normal visualized thoracic spine. Normal visualized ribs, clavicles, and shoulders. There is no demonstrated abnormality of the visualized soft tissue structures of the upper abdomen. RAD/Chest PA and Lateral IMPRESSION: Normal x-ray examination of the chest. Electronically Signed: Gonzalez Sherman MD at 12:49 EST ,
[2022-10-24] MEDS: Lidocaine 1% (20 ml mdv) 20 ML Vial INFILT (12:45)
[2022-10-24] MEDS: Doxycycline 100 MG CAPSULE PO (14:26)
[2022-10-24 14:27] VITALS: RESP 16
== END 2022-10-24 14:29 | disposition home or self-care (01) ==
PROVIDERS: Emergency Provider Emergency Medicine; PCP Student in an Organized Health Care Education/Training Program; Visit Provider Emergency Medicine
DX: B34.9 Viral infection, unspecified (principal); J44.9 Chronic obstructive pulmonary disease, unspecified; F17.210 Nicotine dependence, cigarettes, uncomplicated; Z20.822 Contact with and (suspected) exposure to COVID-19; J34.0 Abscess, furuncle and carbuncle of nose
CPT/HCPCS: 71046; 87428; 99283

== ENCOUNTER 2023-01-08 09:27 | Emergency (ER) | payer MEDICAID, SELFPAY ==
[2023-01-08 09:28] VITALS: BP 160/106; PULSE 78; RESP 16; TEMP 36.6; O2SAT 97; BMI 41.5
--- NOTE | 2023-01-08 09:37 | EKG12_ITS ---
Test Reason : SOB Blood Pressure : / mmHG Vent. Rate : 069 BPM Atrial Rate : 069 BPM P-R Int : 138 ms QRS Dur : 080 ms QT Int : 382 ms P-R-T Axes : 068 000 027 degrees QTc Int : 409 ms Normal sinus rhythm Normal ECG Confirmed by TAN MONSON MD ([id number]), photographic editor DARIO SALINAS ([id number]) on 01/10/2023 9:35:47 AM Referred By: VU Confirmed By:TAN MONSON MD
--- NOTE | 2023-01-08 09:53 | EDS_ITS ---
HPI History of Present Illness Chief Complaint: Shortness of Breath Detail of Chief Complaint: Cough with brown phlegm. Wheezing. Informant: patient Onset/Context/Timing Onset: Month(s) Context: gradual Timing: Continuous Current Severity: Mild Maximum Severity: Mild Worsened by: Nothing Relieved by: Nothing Associated Symptoms cough and green sputum; Negative for ear pain or sore throat Chest Pain: Positive for None Narrative Narrative: [id number] female history of asthma bipolar disorder. She is a smoker. Says for 3 months she has had bronchitis. Now she is getting intermittent b rown phlegm. She comes in today specifically wants steroid injection, cannot take oral steroids because they make me back sh- - crazy. Also she wants an antibiotic and codeine cough syrup. She states the codeine cough syrup changes the molecular structure of my phlegm and helps me bring it up. I asked the patient if she has follow-up with her primary care physician she instructed me that she had to fire her recently. Also today she came from her psychiatrist office to the emergency department. PE Risk Factors: Negative for Cancer, OCP + Smoking + > 35, Prior DVT or PE, Recent immobilization, Recent surgery or Recent travel Prior similar symptoms: Yes Recent Illness/Hospitalization: No PFSH PFSH Medical History Acute sinusitis, unspecified Anxiety Arthritis Asthma Asthma-chronic obstructive pulmonary disease overlap syndrome benign colloid nodule (~05/08/19) Bipolar 2 disorder Constipation COPD (chronic obstructive pulmonary disease) Decreased GFR Depression Fatigue Fatty liver Hemorrhoids Hyperthyroidism Multinodular goiter (nontoxic) RAMO (obstructive sleep apnea) Rectal bleeding Rectal discharge Seborrheic keratoses Shortness of breath thyroid nodules Tobacco abuse Vocal cord dysfunction Home Medications Nebulizer supplies #1 ea 08/20/21 [Rx Last Taken Unknown] albuterol sulfate 2.5 mg/3 mL (0.083 %) solution for nebulization 2.5 mg (3 mL) inhalation Q6HWA.RT #180 vials 08/20/21 [Rx Last Taken Unknown] guaifenesin 1,200 mg tablet, extended release 12 hr 1,200 mg PO Q12H #60 tabs 08/20/21 [Rx Last Taken Unknown] levothyroxine 200 mcg capsule 200 mcg PO DAILY 12/12/21 [History Last Taken Unknown] budesonide-formoterol HFA 160 mcg-4.5 mcg/actuation aerosol inhaler (Symbicort) 2 inh inhalation BID #10.2 grams 04/22/22 [Rx Last Taken Unknown] tiotropium bromide 2.5 mcg/actuation mist for inhalation (Spiriva Respimat) 2 puff inhalation QDAY #4 grams 04/22/22 [Rx Last Taken Unknown] albuterol sulfate 90 mcg/actuation aerosol inhaler 2 puff inhalation Q4H PRN shortness of breath or wheezing #1 device 10/22/22 [Rx Last Taken Unknown] amoxicillin 875 mg-potassium clavulanate 125 mg tablet 1 tab PO BID #20 tabs 11/26/22 [Rx Last Taken Unknown] fexofenadine 60 mg tablet (Lelia Allergy) 60 mg PO BID PRN 11/26/22 [History Last Taken Unknown] pseudoephedrine 30 mg-acetaminophen 500 mg tablet See Rx Instructions PO .COMPLEX 11/26/22 [History Last Taken Unknown] lamotrigine 150 mg tablet 150 mg PO DAILY 30 days #30 tabs 12/26/22 [Rx Last Taken Unknown] amoxicillin 875 mg-potassium clavulanate 125 mg tablet 1 tab PO BID 7 days #14 tabs 01/08/23 [Rx Last Taken Unknown] Allergy/AdvReac Type Severity Reaction Status Date / Time ibuprofen [From Motrin] Allergy Unknown Unknown Verified 01/08/23 08:33 aspirin AdvReac Upset Verified 01/08/23 09:27 Stomach bupropion [From Wellbutrin] AdvReac severe Verified 01/08/23 08:33 depression prednisone AdvReac Upset Verified 01/08/23 08:33 Stomach vinyl ether AdvReac Rash Verified 01/08/23 08:33 Family History Mother Diabetes Father Diabetes Bleeding disorder hx of blood clots Brother Diabetes Surgical History History of partial hysterectomy History of surgical removal of pilonidal cyst History of surgical removal of skin lesion history shave biopsy lower abdomen (~02/13/19) Hx of biopsy Hx of section Hx of fracture of femur Hx of needle biopsy Social History Smoking Status: Current every day smoker tobacco type: cigarettes alcohol intake: never substance use type: does not use caffeine: Yes what type of physical activity do you participate in: none frequency: does not exercise seatbelt use: always ROS ROS ED ROS Narrative Cough. Wheezing. Review of Systems ROS Unobtainable: Denies due to encephalopathy Constitutional Constitutional ED: Denies chills or fever(s) Eyes Eyes: Denies blurry vision ENT ENT ED: Denies ear pain Cardiovascular Cardiovascular: Denies chest pain Respiratory/Chest Respiratory/Chest: Reports cough and sputum Gastrointestinal Gastrointestinal: Denies abdominal pain Genitourinary Genitourinary ED: Denies dysuria or hematuria Musculoskeletal Musculoskeletal: Denies arthralgias Integumentary Denies abscess Neurologic Neurologic: Denies headache(s) Psychiatric Psychiatric: Denies anxiety Endocrine Endocrinology: Denies cold intolerance Hematologic/Lymphatic Hematologic/Lymphatic: Denies easy bleeding Allergic/Immunologic Allergic/Immunologic ED: Denies mouth swelling EXAM Physical Exam Narrative Exam Narrative: 32-year-old female no acute distress. Vital signs stable afebrile. Speaking in full sentences. H EENT exam unremarkable. Neck nontender. Lungs dry cough. Few scattered wheezes. No rales or rhonchi. Equal symmetrical. Heart regular rate and rhythm rate about 80 no murmur. Abdomen soft nontender. Moving all 4 extremities. Calves are nontender without edema or cords. Neurologically she is awake alert with no focal motor deficits. Const Vital Signs: 01/08/23 09:28 01/08/23 09:55 Temperature 97.8 F Temperature Source Temporal Pulse Rate 78 Respiratory Rate 16 Respiratory Effort Normal Blood Pressure 160/106 H Blood Pressure Mean 124 Pulse Ox 97 Oxygen Delivery Method Room Air Room Air Positive well nourished, well developed and obese; Negative for cachectic, contractures or unkempt General Appearance ED: well developed and NAD; Negative for unkempt, cachectic, contractures or pallor Nutritional Appearance: obese; Negative for cachectic HEENT Reports moist mucous membranes; Denies dry mucous membranes atraumatic; Negative for trauma or tenderness Mouth ED: No dry mucous membranes Mouth: No dry mucous membranes Eyes PERRL and EOMs intact bilaterally General Eye ED: Negative for pale conjunctiva or scleral icterus Neck no lymphadenopathy, supple, no meningeal signs and no JVD General: Negative for tenderness Lymph Lymphatic: Negative for other Chest Wall Chest: Negative for other Resp normal respiratory effort and No clear to auscultation bilaterally Resp Narrative: Few scattered wheezes. Dry cough. Effort and Inspection: Negative for pain with movement Auscultation: wheezes; Negative for rales, rhonchi or diminished lung sounds Cardio regular rate, regular rhythm, S1 normal heart sound, S2 normal heart sound and no murmurs Rate: Negative for bradycardia Rhythm: Negative for abnormal rhythm GI non-tender, non-distended and no masses Inspection: Negative for other Auscultation: normoactive bowel sounds Palpation: soft; Negative for tender or guarding Bladder / Kidney Exam: No other Back/Spine no CVA tenderness and normal to inspection General Back: Negative for CVA tenderness or tenderness Extremity normal to inspection General Extremety ED: Negative for edema or tenderness General Extremity: Negative for edema Neuro oriented x3 and CN's II-XII intact bilaterally Sensorium / Orientation: alert, oriented to person, oriented to place and oriented to time; Negative for orientation impaired, confused, lethargic or stuporous Speech: speech normal Gait (Neuro): Negative for normal gait Motor Exam: strength 5/5 throughout Psych mental status grossly normal Appearance: Negative for unkempt Attitude: No agitated Mood & Affect: Negative for depressed Thought Process: normal thought process Skin no wounds and skin turgor normal General Skin Exam: Negative for jaundice or pallor Lesions: no lesions Rashes: no rashes Trauma: Negative for abrasion or laceration MDM MDM MDM Narrative Medical decision making narrative: 52-year-old bipolar patient who has upper respiratory symptoms. Needs to stop smoking. She comes in with a specific plan to dictate her care. I explained her she does not need cough syrup with codeine. I would not write for that. She will not take oral steroids once the shot of Kenalog which we will do. And I will write her for Augmentin. She does follow-up with her primary care physician. She also needs to stop smoking. Patient does not need a chest x-ray or any imaging. She does not need lab work. Nursing protocol did an EKG prior to my evaluation. History & Record Review Discussion w/independent historian: Patient Rhythm Strip Rhythm Strip: Sinus Rhythm Rate: 69 Ectopy: None EKG Initial EKG: Attestation: I personally reviewed and interpreted this EKG as follows: Interpretation: Sinus Rhythm and No Acute Injury Pattern Comments: Normal sinus rhythm rate of 69 no acute signs of WA or ischemia Discharge Plan Triage Chief Complaint: Shortness of Breath ED Provider: Andrei Bills Dx/Rx/DC Orders Clinical Impression: Bronchitis, History of bipolar disorder, History of asthma Instructions: ED Bronchitis with Wheezing (Adult) Prescriptions: New amoxicillin-pot clavulanate 875-125 mg tablet 1 tab PO BID 7 Days Qty: 14 0RF No Action albuterol sulfate 2.5 mg /3 mL (0.083 %) solution for nebulization 2.5 mg inhalation Q6HWA.RT Qty: 180 11RF guaifenesin 1,200 mg tablet extended release 12hr 1,200 mg PO Q12H Qty: 60 6RF (DME) Nebulizer supplies See Rx Instructions .Route .MEDSUPPLY Qty: 1 0RF Rx Instructions: As directed levothyroxine 200 mcg capsule 200 mcg PO DAILY Symbicort 160-4.5 mcg/actuation HFA aerosol inhaler 2 inh INHALATION BID Qty: 10.2 11RF Spiriva Respimat 2.5 mcg/actuation mist 2 puff inhalation QDAY Qty: 4 11RF albuterol sulfate 90 mcg/actuation HFA aerosol inhaler 2 puff inhalation Q4H PRN (Reason: shortness of breath or wheezing) Qty: 1 6RF Rx Instructions: administer with spacer fexofenadine [Lelia Allergy] 60 mg tablet 60 mg PO BID PRN pseudoephedrine-acetaminophen 30-500 mg tablet See Rx Instructions PO .COMPLEX Rx Instructions: As directed orally; amoxicillin-pot clavulanate 875-125 mg tablet 1 tab PO BID Qty: 20 0RF lamotrigine 150 mg tablet 150 mg PO DAILY 30 Days Qty: 30 2RF Primary Care Provider: Tiago Powell Referrals: iTago Powell DO [Primary Care Provider] - 1 Week if not improving Activity Restrictions/Additional Instructions: Augmentin as prescribed. You absolutely need to stop smoking. Follow-up with a primary care physician. Disposition Disposition: Home, Self Care
[2023-01-08 09:55] VITALS: O2SAT 98
[2023-01-08] MEDS: Triamcinolone Acetonide 40 MG/ML Vial IM (10:10)
== END 2023-01-08 10:30 | disposition home or self-care (01) ==
LOC: ED 10:02
PROVIDERS: Emergency Provider Emergency Medicine; PCP Student in an Organized Health Care Education/Training Program; Visit Provider Emergency Medicine
DX: J40 Bronchitis, not specified as acute or chronic (principal); J44.9 Chronic obstructive pulmonary disease, unspecified; F31.81 Bipolar II disorder; F17.210 Nicotine dependence, cigarettes, uncomplicated; Z79.899 Other long term (current) drug therapy; E05.90 Thyrotoxicosis, unspecified without thyrotoxic crisis or storm; Z79.51 Long term (current) use of inhaled steroids
CPT/HCPCS: 93005; 99282

== ENCOUNTER 2024-12-20 15:34 | Emergency (ER) | payer MEDICAID, SELFPAY ==
[2024-12-20] VITALS (7 sets, daily range): BP systolic 122–161; BP diastolic 69–99; PULSE 72–97; RESP 10–18; TEMP 36.3–37.1; O2SAT 92–97; BMI 42.7
--- NOTE | 2024-12-20 16:27 | EX.ED.DYSGE1 ---
HPI History of Present Illness Chief Complaint: Abscess Detail of Chief Complaint: Abscess right buttocks Informant: patient Onset/Context/Timing Onset: Yesterday Context: Sudden Onset Timing: Continuous Quality: Hard fluctuant tender area right buttocks near anus Location: Right buttocks inferior portion Current Severity: Moderate Maximum Severity: Moderate Worsened by: Unknown Relieved by: Nothing Associated Symptoms Associated Symptoms: Pain otherwise nothing Narrative Narrative: Patient is a 54-year-old woman. She has history of thyroid disease, overlap of asthma COPD, obstructive sleep apnea, perianal and buttocks abscess seen by Dr. Jessee Delvalle in the past and presently or more recently by surgeon at [facility]. She denies history of fever, chills night sweats. She denies history rheumatic fever, heart murmur, SBE or being on any immunosuppressive agents. She was to follow-up with surgeon at [facility]; however, she has not. There is question whether she may have a fistula. She has no history of ulcerative colitis or Crohn's disease. Patient denies nausea, vomiting or diarrhea. She denies constipation. She denies blood or mucus in her stool. She has no gynecologic or urologic symptoms. Prior similar symptoms: Yes Recent Illness/Hospitalization: No PFSH [facility] Medical History Insomnia Acute sinusitis, unspecified Bipolar 2 disorder Fatty liver Decreased GFR Rectal bleeding Rectal discharge Hyperthyroidism benign colloid nodule (~05/08/19) Multinodular goiter (nontoxic) thyroid nodules Tobacco abuse Asthma-chronic obstructive pulmonary disease overlap syndrome Vocal cord dysfunction Seborrheic keratoses RAMO (obstructive sleep apnea) Hemorrhoids Constipation Asthma COPD (chronic obstructive pulmonary disease) Shortness of breath Anxiety Depression Arthritis Fatigue Home Medications ?Medication ?Instructions ?Recorded ?Last Taken ?Type Nebulizer supplies #1 ea 08/20/21 Unknown Rx albuterol sulfate 2.5 mg/3 mL 2.5 mg (3 mL) inhalation Q6HWA.RT 08/20/21 Unknown Rx (0.083 %) solution for nebulization #180 vials budesonide-formoterol HFA 160 2 inh inhalation BID #10.2 grams 04/22/22 Unknown Rx mcg-4.5 mcg/actuation aerosol inhaler (Symbicort) tiotropium bromide 2.5 2 puff inhalation QDAY #4 grams 04/22/22 Unknown Rx mcg/actuation mist for inhalation (Spiriva Respimat) albuterol sulfate 90 mcg/actuation 2 puff inhalation Q4H PRN 11/07/23 Unknown Rx aerosol inhaler (Ventolin HFA) shortness of breath or wheezing #18 grams doxycycline hyclate 100 mg capsule 100 mg PO QDAY 09/29/24 Unknown History gabapentin 800 mg tablet 800 mg PO QDAY 09/29/24 Unknown History fluoxetine 40 mg capsule 40 mg PO DAILY #90 caps 11/29/24 Unknown Rx lamotrigine 150 mg tablet See Rx Instructions .Route 11/29/24 Unknown Rx .COMPLEX #90 tabs amlodipine 5 mg tablet 5 mg PO QDAY 12/14/24 Unknown History diazepam 10 mg tablet 10 mg PO QDAY PRN anxiety #30 tabs 12/14/24 Unknown Rx amoxicillin 875 mg-potassium 875 mg PO Q12H #14 TABLETS 12/20/24 Unknown Rx clavulanate 125 mg tablet cholecalciferol (vitamin D3) 125 125 mcg PO DAILY 12/20/24 Unknown History mcg (5,000 unit) tablet (Vitamin D3) levothyroxine 200 mcg tablet 200 mcg PO DAILY 12/20/24 Unknown History lorazepam 1 mg tablet 1 mg PO DAILY PRN anxiety 12/20/24 Unknown History Allergy/AdvReac Type Severity Reaction Status Date / Time ibuprofen (From Motrin) Allergy Unknown Unknown Verified 12/20/24 15:35 aspirin AdvReac Upset Verified 12/20/24 15:35 Stomach bupropion (From Wellbutrin) AdvReac severe Verified 12/20/24 15:35 depression prednisone AdvReac Upset Verified 12/20/24 15:35 Stomach vinyl ether AdvReac Rash Verified 12/20/24 15:35 Family History Mother Diabetes Father Diabetes Bleeding disorder hx of blood clots Brother Diabetes Surgical History History of neck surgery History of esophagogastroduodenoscopy (EGD) History of colonoscopy Hx of needle biopsy history shave biopsy lower abdomen (~02/13/19) Hx of biopsy History of surgical removal of skin lesion Hx of fracture of femur History of partial hysterectomy History of surgical removal of pilonidal cyst Hx of section Social History Smoking Status: Current every day smoker tobacco type: cigarettes alcohol intake: never substance use type: does not use caffeine: Yes what type of physical activity do you participate in: none frequency: does not exercise seatbelt use: always ROS ROS ED Constitutional Constitutional ED: Denies chills, fever(s), subjective or sweats Eyes Eyes: Denies blurry vision or change in vision ENT ENT ED: Denies rhinorrhea or sore throat Cardiovascular Cardiovascular: Denies chest pain, orthopnea, palpitations or paroxysmal nocturnal dyspnea Respiratory/Chest Respiratory/Chest: Denies cough, dyspnea, dyspnea on exertion, orthopnea or paroxysmal nocturnal dyspnea Gastrointestinal Gastrointestinal: Denies abdominal pain, constipation, diarrhea, nausea or vomiting Genitourinary Genitourinary ED: Denies dysuria, hematuria or urinary frequency Musculoskeletal Musculoskeletal: Denies back pain Integumentary Reports abscess Neurologic Neurologic: Denies headache(s), paresthesias or weakness Endocrine Endocrinology: Denies cold intolerance or heat intolerance Hematologic/Lymphatic Hematologic/Lymphatic: Reports systems reviewed and no addt'l complaints, except as documented EXAM Physical Exam Const Vital Signs: 12/20/24 15:35 12/20/24 17:12 12/20/24 17:12 Temperature 97.3 F L 98 F Temperature Source Temporal Pulse Rate 97 81 Respiratory Rate 15 10 L Blood Pressure 161/99 H 135/84 H Blood Pressure Mean 119 Baseline BP 135/84 Pulse Ox 93 93 Oxygen Delivery Method Room Air Room Air EtCo2 (Normal 35-45 , high quality CPR 10-20 & ROSC>/=40mmHg 54 55 Positive well nourished and well developed Constitutional Narrative: BMI is 42.8. Patient appears no distress. She has tobacco odor to her breath. Vital signs are marked for an elevated blood pressure. She has not anything to eat since breakfast. She had couple sips of coffee prior to arrival. She has been waiting for some time. General Appearance ED: well developed; Negative for pallor HEENT Reports moist mucous membranes HEENT Narrative: Head is atraumatic normocephalic. Ears normal. Nares patent. Posterior pharynx normal Eyes PERRL and EOMs intact bilaterally General Eye ED: Negative for pale conjunctiva or scleral icterus Neck no lymphadenopathy, supple and no JVD Chest Wall inspection of chest normal and palpation of chest normal Resp normal respiratory effort and clear to auscultation bilaterally Cardio regular rate, regular rhythm, S1 normal heart sound, S2 normal heart sound and no murmurs GI normal to inspection, nondistended, normoactive bowel sounds, non-tender, non-distended and no masses; Negative for hepatosplenomegaly GI Narrative: Patient has an abscess with surrounding cellulitis. The area is fluctuant. The area of erythema is 4 to 5 cm. There is no obvious fissures fistulas or hemorrhoids noted. Extremity normal to inspection Neuro oriented x3 and CN's II-XII intact bilaterally Sensorium / Orientation: alert Psych mental status grossly normal Skin No no rashes or lesions noted, no wounds and skin turgor normal General Skin Exam: Negative for jaundice or pallor MDM MDM MDM Narrative Medical decision making narrative: Patient with abscess inferior medial right gluteal region. This is not consistent with a pilonidal cyst that she has had in the past. Since patient has not nothing to eat plan is to proceed with sedation with propofol and I&D. She will receive a dose of Zosyn. Will obtain consent for sedation as well as I&D. She understands risk benefits. History & Record Review Additional record(s) reviewed:: Prior outpatient record (Prior records were reviewed.), Prior ED visit and Prior labs Lab Data Attestation: I reviewed the patient's lab results. Lab results narrative: CBC is unremarkable. There is elevation in monocytes otherwise normal. Labs: Laboratory Results - last 24 hr 12/20/24 16:40 WBC 4.7 RBC 4.68 Hgb 13.6 Hct 41.6 MCV 88.9 MCH 29.1 MCHC 32.7 RDW Std Deviation 46.2 H RDW Coeff of Byron 14.4 Plt Count 160 MPV 11.8 Immature Gran % (Auto) 0.400 Neut % (Auto) 66.0 Lymph % (Auto) 18.8 L Davis % (Auto) 13.5 H Eos % (Auto) 0.9 Baso % (Auto) 0.4 Absolute Neuts (auto) 3.1 Absolute Lymphs (auto) 0.88 Nucleated RBC % 0 Lactic Acid 1.1 Procedures Procedural Sedation 1 (Initial Baseline): Consent Signed: Yes Any Problems With Anesthesia: Yes Sedation medication: Propofol Dose: 80 (Milligrams) Route: IV Total Moderate Sedation Units: 5 (Minutes) Maliampati Score: Class II ASA Classification: II Comment:: Patient was consented for procedural sedation I&D of buttocks abscess. Patient explained risk benefits. She signed consent. She had no questions. Timeout was performed. Patient received total 80 mg of propofol administered by me. Once desired effect was achieved the area was anesthetized 1% lidocaine. Using a 10 blade incision was made. There was approximately 1 cc of turbid purulent material that drained spontaneous. There is minimal loculation. Blunt dissection was undertaken. Iodoform gauze was placed as a wick. Patient tolerated procedure well. She did not become hypoxic nor did she become might got hypercapnic. Monitor reveals sinus rhythm rate of 95. There is no ectopy. Discharge Plan Triage Chief Complaint: Abscess ED Provider: Reinaldo Grajeda Dx/Rx/DC Orders Clinical Impression: Cellulitis and abscess of buttock, COPD (chronic obstructive pulmonary disease), Asthma-chronic obstructive pulmonary disease overlap syndrome, Bipolar 2 disorder Instructions: ED Abscess Incision And Drainage, ED Cellulitis Prescriptions: New amoxicillin-pot clavulanate 875-125 mg tablet 875 mg PO Q12H Qty: 14 0RF No Action albuterol sulfate 2.5 mg /3 mL (0.083 %) solution for nebulization 2.5 mg inhalation Q6HWA.RT Qty: 180 11RF (DME) Nebulizer supplies See Rx Instructions .Route .MEDSUPPLY Qty: 1 0RF Rx Instructions: As directed Symbicort 160-4.5 mcg/actuation HFA aerosol inhaler 2 inh INHALATION BID Qty: 10.2 11RF Spiriva Respimat 2.5 mcg/actuation mist 2 puff inhalation QDAY Qty: 4 11RF doxycycline hyclate 100 mg capsule 100 mg PO QDAY gabapentin 800 mg tablet 800 mg PO QDAY amlodipine 5 mg tablet 5 mg PO QDAY diazepam 10 mg tablet 10 mg PO QDAY PRN (Reason: anxiety) Qty: 30 2RF levothyroxine 200 mcg tablet 200 mcg PO DAILY lorazepam 1 mg tablet 1 mg PO DAILY PRN (Reason: anxiety) cholecalciferol (vitamin D3) [Vitamin D3] 125 mcg (5,000 unit) tablet 125 mcg PO DAILY albuterol sulfate [Ventolin HFA] 90 mcg/actuation HFA aerosol inhaler 2 puff inhalation Q4H PRN (Reason: shortness of breath or wheezing) Qty: 18 6RF lamotrigine 150 mg tablet See Rx Instructions .ROUTE .COMPLEX Qty: 90 1RF Dose Instruction: TAKE ONE TABLET BY MOUTH DAILY Rx Instructions: TAKE ONE TABLET BY MOUTH DAILY fluoxetine 40 mg capsule 40 mg PO DAILY Qty: 90 1RF Primary Care Provider: Leandro Nogueira Referrals: Leandro Nogueira DO [Primary Care Provider] - Jose Mccord MD [Med Staff - Active Staff] - 2 Days for wound check Activity Restrictions/Additional Instructions: Take antibiotics as prescribed until gone Contact Dr. Gold's office today to be seen in 2 days, December 22 Print Language: Citizen Of [place] Disposition Disposition: Home, Self Care
[2024-12-20 16:47] LABS: Absolute Lymphocyte Count 0.88 X10^3/uL (0.83-4.51); Absolute Neutrophil Count 3.1 X10^3/uL (2.0-7.7); Basophil# 0.02 X10^3/uL; Basophil% 0.4 % (0-1); Eosinophil# 0.04 X10^3/uL; Eosinophils% 0.9 % (0-5); Hematocrit 41.6 % (37-47); Hemoglobin 13.6 g/dL (12.0-15.0); Lymphocyte # 0.88 X10^3/ul (0.83-4.51); Lymphocyte % 18.8 % (19-41); Mean Corp Hgb Conc 32.7 g/dL (32-36); Mean Corpuscular Hgb 29.1 pg (27.0-32.0); Mean Corpuscular Volume 88.9 fL (81-99); Mean Platelet Vol. 11.8 fl (6.2-12.0); Monocyte# 0.63 X10^3/uL; Monocyte% 13.5 % (0-10); NRBC Flagged by Analyzer 0 % (0-5); Neutrophil # 3.09 X10^3/uL (2.7-7.7); Platelet Count 160 K/mm3 (150-450); RBC Distribution Width CV 14.4 % (11.6-14.6); RBC Distribution Width SD 46.2 fl (35.1-43.9); Red Blood Count 4.68 M/mm3 (4.2-5.4); White Blood Count 4.7 K/mm3 (4.4-11.0)
[2024-12-20 17:21] LABS: Lactic Acid 1.1 mmol/L (0.0-2.0)
[2024-12-20 17:27] LABS: Anion Gap 10 (5-15); BUN 10 mg/dL (4-19); BUN/Creat Ratio 11.6 RATIO (10-20); Calcium,Total 8.8 mg/dL (7.6-11.0); Carbon Dioxide 28.3 mmol/L (21.0-32.0); Chloride 102 mmol/L (98-108); Creatinine, Serum 0.83 mg/dL (0.70-1.20); EST Glomerular Filtration Rate 84 (>60); Estimated Creatinine Clearance 107.03 ml/min (50-250); Glucose 103 mg/dL (70-99); Potassium 4.1 mmol/L (3.3-5.1); Sodium Level 140 mmol/L (133-145)
[2024-12-20] MEDS: Propofol 200 MG/20 ML Vial IV BOLUS (17:33)
[2024-12-20] MEDS: Piperacil/Tazobactam 4.5 GM in 0.9% Normal Saline (100mL MB+) 100 ML IV (17:34)
--- NOTE | 2024-12-20 17:39 | ED.RN ---
Antibiotics given late due to procedural sedation
== END 2024-12-20 18:32 | disposition home or self-care (01) ==
PROVIDERS: Emergency Provider Emergency Medicine; Visit Provider Emergency Medicine
DX: L02.31 Cutaneous abscess of buttock (principal); F31.81 Bipolar II disorder; J44.89 Other specified chronic obstructive pulmonary disease; L03.317 Cellulitis of buttock; Z79.51 Long term (current) use of inhaled steroids; F41.9 Anxiety disorder, unspecified; Z79.899 Other long term (current) drug therapy; Z90.710 Acquired absence of both cervix and uterus; F17.210 Nicotine dependence, cigarettes, uncomplicated
CPT/HCPCS: 10060; 80048; 83605; 85025; 99284; A4216